=== PATIENT | female | born 1980 | race Caucasian/White ===

== ENCOUNTER 2025-02-14 21:37 | Inpatient (IN) ==
--- NOTE | 2025-02-14 21:43 | ED.PDOC ---
General [facility] ED Provider: Dr. DEL KHANNA MD Chief Complaint: Respiratory Complaint Stated Complaint: Patient is a 44-year-old female that reported to the emergency department for cough and congestion for the past 2 days. Patient stated that 2 weeks ago she had a case of pneumonia and was in the hospital in [place]. Patient stated that she was subsequently released a little 2 weeks ago and was told to follow-up with her primary care doctor. Patient stated that she could not get into her primary care doctor until next week. Patient stated that 2 days ago she started to have a productive cough with green/yellowish sputum. Patient stated that she has not had any fever but she has also had a headache and congestion. Patient denied any sore throat, nausea, vomiting, diarrhea, shortness of breath, chest pain, or any other acute symptoms. Patient stated that she is not been around any other sick contacts that she knows of. In the emergency department patient's tachycardia with a heart rate of 118 bpm. Patient's O2 sat is 94% on room air. Patient's blood pressure is 103/63. Patient's respiration rates is 20 respirations per minute. Patient is afebrile with a temperature of 97.3 Fahrenheit. Patient's GCS is 15. Previously the pt. had ARDS resulting in prolonged hospitalization from Apr to August and had a trach. Patient is currently on Xarelto for multiple pulmonary embolisms found in her hospitalization. Time Seen by Provider: 02/14/25 21:38 Mode of Arrival: Walk-In Information Source: Patient Exam Limitations: No limitations Primary Care Provider: JONATAN LANIER MD Nursing and Triage Documentation Reviewed and Agree: Yes Opioid Naive vs. Tolerant What is Opioid Naive?: *Opioid Naive implies the patient is not already taking opioids or not chronically receiving opioids on a daily basis. *PRN dosing is not "usually" associated with tolerance. *Patients are at higher risk of over-sedation and aspiration. What is Opioid Tolerant?: *Opioid Tolerance implies less than the expected response to an opioid. *Acquired tolerance is defined by the patient taking 60mg of oral morphine daily (or equianalgesic dose of another opioid) for 1 week or more. *Often associated with chronic pain. *May take more than usual dose to achieve desired pain control. Review of Systems Review Of Systems Constitutional: Reports No symptoms Ears, Nose, Mouth, Throat: Reports Nose discharge Respiratory: Reports Cough Neurological: Reports Headache All Other Systems: Reviewed and Negative [facility] Medical History (Updated 02/14/25 @ 23:04 by DEL KHANNA MD) ARDS (adult respiratory distress syndrome) J80 - Acute respiratory distress syndrome (ICD-10) Walker as ambulation aid Rarely used as of 11/15/24. Z99.89 - Dependence on other enabling machines and devices (ICD-10) Right foot drop Foot drop is better. No longer using walker. Still using lyrica. 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 Last done 10/23/24 553. E53.8 - Deficiency of other specified B group vitamins (ICD-10) Primary generalized (osteo)arthritis M15.0 - Primary generalized (osteo)arthritis (ICD-10) Opioid abuse - Hx of opioids abuse. Denies recent opioids use. F11.10 - Opioid abuse, uncomplicated (ICD-10) Hypothyroid E03.9 - Hypothyroidism, unspecified (ICD-10) Migraine - hx of migraine headaches; does not have time to discuss her migraine symptoms. G43.909 - Migraine, unspecified, not intractable, without status migrainosus (ICD-10) Depression - Denies having psychotic features. She reports that her depression has worsened due to recent hospitalization and complications 2/2 pneumonia. - Denies having SI/HI/AVH. F32.A - Depression, unspecified (ICD-10) Anxiety - Hx of anxiety, for which she was taking Xanax. However, she reports that hydroxyzine works well for her. F41.9 - Anxiety disorder, unspecified (ICD-10) Family History BROTHER Diabetes FATHER Diabetes Hepatitis Liver disease Mother Meningitis SISTER Bipolar 1 disorder Schizophrenia Depression Social History Smoking and tobacco status: Former smoker Current gender identity: female Seatbelt use: always Helmet use: Yes Drives intoxicated or rides with intoxicated regional dedicated truck driver: No Surgical History Status post video-assisted thoracoscopic surgery (VATS) with lung decortication Z98.890 - Other specified postprocedural states (ICD-10) History of bronchoscopy with endobronchial valve Z98.890 - Other specified postprocedural states (ICD-10) History of ankle surgery Z98.890 - Other specified postprocedural states (ICD-10) Hx of cholecystectomy Z90.49 - Acquired absence of other specified parts of digestive tract (ICD- 10) H/O gastric bypass Z98.84 - Bariatric surgery status (ICD-10) Female Reproductive History Menstrual Hx Hysterectomy: No Hx Tubal Ligation: No Physical Exam Physical Exam Appearance: Reports Ill-appearing and Well-nourished Ill-appearing: Mild Pain Distress: None Eyes: Reports CAMILA, EOMI and Conjunctiva clear ENT: Reports Nose normal and Oropharynx normal Neck: Supple Respiratory: Reports Airway patent, Breath sounds equal, Respirations nonlabored, Crackles (Crackles noted in the right lower and midlung meehan.) and Wheezes (Mild wheezing noted in the right middle and lower lung meehan.) Cardiovascular: Reports Pulses normal, No rub, No murmur and Tachycardia (Patient's tachycardic with an apical pulse of 110 bpm.) GI/: Reports Soft, Nontender and Bowel sounds normal Musculoskeletal: Reports Normal strength and ROM intact Skin: Reports Warm, Dry and Normal color Neurological: Reports Sensation intact, Motor intact, Alert and Oriented Psychiatric: Reports Affect appropriate and Mood appropriate Physician Progress Note Physician Progress Note: Patient is a 44-year-old female that reported to the emergency department for cough and congestion for the past 2 days. Patient stated that 2 weeks ago she had a case of pneumonia and was in the hospital in [place]. Patient stated that she was subsequently released a little 2 weeks ago and was told to follow- up with her primary care doctor. Patient stated that she could not get into her primary care doctor until next week. Patient stated that 2 days ago she started to have a productive cough with green/yellowish sputum. Patient stated that she has not had any fever but she has also had a headache and congestion. Patient denied any sore throat, nausea, vomiting, diarrhea, shortness of breath, chest pain, or any other acute symptoms. Patient stated that she is not been around any other sick contacts that she knows of. In the emergency department patient's tachycardia with a heart rate of 118 bpm. Patient's O2 sat is 94% on room air. Patient's blood pressure is 103/63. Patient's respiration rates is 20 respirations per minute. Patient is afebrile with a temperature of 97.3 Fahrenheit. Patient's GCS is 15. Previously the pt. had ARDS resulting in prolonged hospitalization from Apr to August and had a trach. Patient is currently on Xarelto for multiple pulmonary embolisms found in her hospitalization. - Due to patient's cough with mild wheezing on physical exam will give the patient a DuoNeb treatment and IV methylprednisolone 125 mg for inflammation. - Will give the patient IV lactated Ringer's 1 L bolus for dehydration and tachycardia. - Will order chest x-ray to rule out pneumonia. - Will order baseline labs and a lactic acid. - Patient has hypomagnesemia. Will give 1 g of IV magnesium. - Chest x-ray shows a chronic right lower lobe hydropneumothorax that is stable from previous studies. An acute right lower lobe consolidation (pneumonia) is noted. This was interpreted by the ER physician. - Will treat patient's right lower lobe pneumonia with IV Zosyn. -(2300) spoke to hospitalist at [facility], Buster Erickson NP who is agreed to accept this patient for pneumonia. Have discussed current treatment of IV mag 1 g for hypomagnesemia, IV Zosyn 4.5 g for pneumonia, IV methylprednisolone 125 mg for inflammation and pneumonia and a DuoNeb treatment for wheezing and pneumonia. Discussed patient's leukocytosis and other pertinent lab findings with radiograph findings to Buster as well. I also discussed that I did find a chronic but stable hemopneumothorax. Also discussed that patient has been seen by pulmonology in [place]. Patient's vital signs are stable at time of acceptance to the hospital Course Course 02/14/25 22:10 02/14/25 22:36 Discharge Plan Discharge Patient Disposition: PLACED OBSERVATION Discharge Problem: Hydropneumothorax, Hx pulmonary embolism, Hypomagnesemia Community acquired pneumonia Qualifiers: Laterality: right Lung location: lower lobe of lung Qualified Code(s): J18.9 - Pneumonia, unspecified organism Did you review [place] [employer] for ALL controlled substances?: Not Applicable ED Provider: DEL KHANNA Condition: Stable
[2025-02-14] MEDS: DUONEB NEB STA (22:15)
[2025-02-14 22:18] LABS: IMMATURE GRANULOCYTE # (AUTO) 0.0 (0.0-1.0); IMMATURE GRANULOCYTE % (AUTO) 0.4 % (0.0-5.0); RDW COEFFICIENT OF VARIATION 14.8 % (11.6-14.8)
[2025-02-14 22:39] LABS: MOLECULAR FLU A NEGATIVE BY NAAT (NEGATIVE); MOLECULAR FLU B NEGATIVE BY NAAT (NEGATIVE); RSV MOLECULAR NEGATIVE BY NAAT (NEGATIVE); SARS COV-2 RNA RAPID NAAT NEGATIVE (NEGATIVE)
[2025-02-14] MEDS: LACTATED RINGERS 1,000 ML IV ONE (22:39)
[2025-02-14] MEDS: SOLU-MEDROL 125 MG IVP ONE (22:40)
[2025-02-14 22:52] LABS: CREATININE 0.81 mg/dL (0.60-1.30)
[2025-02-14] MEDS: MAGNESIUM SULFATE 1 GM/2 ML VIAL IVP ONE (23:11)
[2025-02-14] MEDS: ZOSYN 4.5 GM 4.5 GM in SODIUM CHLORIDE 100ML 100 ML IV ONE (23:12)
[2025-02-14 23:13] LABS: GLUCOSE, URINE (UA) Negative (NEGATIVE); LEUKOCYTE ESTERASE ,URINE Negative (NEGATIVE); URINE, BLOOD 1+ (NEGATIVE)
[2025-02-14 23:15] LABS: URINE PREGNANCY TEST NEGATIVE (NEGATIVE)
[2025-02-14 23:21] LABS: URINE WBC, MICROSCOPIC 0-2 (0-2)
[2025-02-14 23:22] LABS: SQUAMOUS EPITHELIAL CELL,UR 30-50 (0-5)
--- NOTE | 2025-02-15 00:03 | DI ---
EXAM: CHEST, ONE-VIEW HISTORY: Cough FINDINGS: Cardiac and mediastinal contours are normal. Pulmonary vasculature is normal. Crack right pleuroparenchymal scarring and pleural fluid stable from 01/23/2025. No developing opacities. Bony thorax is unremarkable. IMPRESSION: Right-sided pleural-parenchymal scarring and pleural fluid. No developing opacities.
[2025-02-15 00:35] VITALS: BMI 30.2
[2025-02-15] MEDS ORDERED: ZOFRAN TAB PO PRN (01:20)
[2025-02-15] MEDS: ELAVIL PO SCH (02:00)
[2025-02-15] MEDS: DESYREL PO PRN (02:00)
[2025-02-15] MEDS ORDERED: BENADRYL PO PRN (02:46)
[2025-02-15] MEDS: DUONEB NEB SCH ×2 (05:22→13:57)
[2025-02-15 05:29] LABS: IMMATURE GRANULOCYTE # (AUTO) 0.1 (0.0-1.0); IMMATURE GRANULOCYTE % (AUTO) 0.5 % (0.0-5.0); RDW COEFFICIENT OF VARIATION 14.7 % (11.6-14.8)
[2025-02-15 05:45] LABS: CREATININE 0.7 mg/dL (0.60-1.30)
[2025-02-15 05:56] LABS: INR 0.99 SI (0.0-3.9)
[2025-02-15] MEDS: MAXIPIME 2 GM/50 ML D5W 2 GM/50 ML BAG IV SCH (07:06)
[2025-02-15] MEDS: SOLU-MEDROL 40 MG IVP SCH (07:07)
[2025-02-15] MEDS: K-DUR PO SCH (07:20)
[2025-02-15] MEDS: SYNTHROID PO SCH (07:20)
[2025-02-15] MEDS: ASTELIN 0.1% NAS SCH (08:35)
[2025-02-15] MEDS: ANORO ELLIPTA 62.5-25 MCG INH IH SCH (08:36)
[2025-02-15] MEDS: KEPPRA PO SCH (08:36)
[2025-02-15] MEDS: LYRICA PO SCH (08:37)
[2025-02-15] MEDS: CELEBREX PO SCH (08:37)
[2025-02-15] MEDS: VITAMIN D PO SCH (08:38)
[2025-02-15] MEDS: ZOLOFT PO SCH (08:38)
[2025-02-15] MEDS: PROTONIX PO SCH (08:38)
[2025-02-15] MEDS: MUCINEX PO SCH (08:38)
[2025-02-15] MEDS: TOPAMAX PO SCH (08:39)
[2025-02-15] MEDS: SINGULAIR PO SCH (08:39)
[2025-02-15] MEDS ORDERED: DOXYCYCLINE PO SCH (09:00)
[2025-02-15] MEDS ORDERED: SOLU-MEDROL 125 MG IVP SCH (09:00)
[2025-02-15] MEDS ORDERED: XARELTO PO SCH (09:00)
[2025-02-15] MEDS ORDERED: DOXY-100 100 MG in SODIUM CHLORIDE 100ML 100 ML IV SCH (09:00)
[2025-02-15 09:08] LABS: BORDETELLA PARAPERTUSSIS (PCR) NOT DETECTED (NOT DETECT); BORDETELLA PERTUSSIS (PCR) NOT DETECTED (NOT DETECT); CHLAMYDIA PNEUMONIAE (PCR) NOT DETECTED (NOT DETECT); CORONAVIRUS 229E (PCR) NOT DETECTED (NOT DETECT); CORONAVIRUS HKU1 (PCR) NOT DETECTED (NOT DETECT); CORONAVIRUS NL63 (PCR) NOT DETECTED (NOT DETECT); CORONAVIRUS OC43 (PCR) NOT DETECTED (NOT DETECT); HUMAN METAPNEUMOVIRUS (PCR) NOT DETECTED (NOT DETECT); INFLUENZA A H1 (PCR) NOT DETECTED (NOT DETECT); INFLUENZA A H1-2009 (PCR) NOT DETECTED (NOT DETECT); INFLUENZA A H3 (PCR) NOT DETECTED (NOT DETECT); INFLUENZA B (PCR) NOT DETECTED (NOT DETECT); MYCOPLASMA PNEUMONIAE (PCR) NOT DETECTED (NOT DETECT); PARAINFLUENZA VIRUS 1 (PCR) NOT DETECTED (NOT DETECT); PARAINFLUENZA VIRUS 2 (PCR) NOT DETECTED (NOT DETECT); PARAINFLUENZA VIRUS 3 (PCR) NOT DETECTED (NOT DETECT); PARAINFLUENZA VIRUS 4 (PCR) NOT DETECTED (NOT DETECT); RESPIRATORY SYNCYTIAL V (PCR) NOT DETECTED (NOT DETECT); SARS_COV_2 (PCR) NOT DETECTED (NOT DETECT)
[2025-02-15 10:51] LABS: ADENOVIRUS (PCR) NOT DETECTED (NOT DETECT); HUMAN RHINOVIRUS/ENTEROV (PCR) DETECTED (NOT DETECT)
[2025-02-15] MEDS: BALANCED B-100 PO SCH (11:44)
--- NOTE | 2025-02-15 11:45 | CT ---
EXAM: CTA CHEST PE PROTOCOL 02/15/2025. SAGITTAL, CORONAL, MIP AND THREE- DIMENSIONAL RECONSTRUCTED IMAGES PROVIDED HISTORY: sob COMPARISON: 01/26/2025 FINDINGS: Stable chronic right-sided loculated thick-walled hydropneumothorax.The heart size appears stable. There is no pericardial effusion.There are no pulmonary arterial filling defects to suggest pulmonary embolus. The previously described 1.2 cm short axis subcarinal lymph node is stable. This is likely physiologic and reactive. There are innumerable micronodules throughout both lungs. The previously described 9 mm right-sided nodule is stable on axial image 52 of series 9. Consolidation along the lateral and posterior right chest remains consistent with fibrosis, atelectasis and/or pneumonia. Stable bronchiectasis most severe within the lower lobes. Right middle lobe and right lower lobe peribronchial thickening is present. Limited views of the upper abdomen shows no acute abnormality.No acute osseous abnormality. IMPRESSION: 1. No pulmonary embolus. 2. Stable right-sided loculated thick walled hydropneumothorax. 3. Stable reactive appearing mediastinal lymph nodes. Reference measurements above. 4. Innumerable pulmonary micronodules throughout both lungs. These are likely infectious/inflammatory. The previously referenced 9 mm right-sided nodule is stable. 5. Stable bronchiectasis most prominent within the lower lobes. 6. Consolidation along the lateral and posterior right chest remains most compatible with fibrosis, atelectasis and/or pneumonia. This is grossly stable. 7. Right middle lobe and right lower lobe peribronchial thickening. All CT scans are performed using dose optimization techniques as appropriate to the performed exam and include at least one of the following: Automated exposure control, adjustment of the mA and/or kV according to size, and the use of iterative reconstruction technique.
[2025-02-15 12:38] LABS: AMPHETAMINE SCREEN,URINE NEGATIVE (NEGATIVE); CANNABINOID SCREEN,URINE NEGATIVE (NEGATIVE); COCAIN SCREEN,URINE NEGATIVE (NEGATIVE); METHADONE URINE SCREEN NEGATIVE (NEGATIVE); METHAMPHETAMINES SCREEN,URINE NEGATIVE (NEGATIVE); OXYCODONE URINE SCREEN NEGATIVE (NEGATIVE); TRICYCLIC ANTIDEPRESSANTS URIN POSITIVE (NEGATIVE)
--- NOTE | 2025-02-15 13:16 | PCM ---
Date of Service Date Seen by Provider: 02/15/25 Time Seen by Provider: 09:00 Admit Day/Time Admission Date: 02/14/25 Reason for Admission Chief Complaint: PNEUMONIA Hospital Provider Hospital Provider: LUANNE SANTOS[place] [facility] [place] Primary Care Physician: JONATAN LANIER MD History of Present Illness History of Present Illness: 44 yo female with extensive pmh that including ARDS with prolonged intubation, ECMO, and tracheostomy, PE, DVT, Sepsis, epilepsy, migraines, anxiety, and right hydropneumothorax presented to the ER with complaints of unresolved pneumonia. Patient has been in and out of multiple hospitals since 04/2024 and has been treated for chronic recurrent pneumonia. Most recent admission was at [facility] on 01/26-01/29 in which she was found to have multi-focal pneumonia d/t pseudomonas. She underwent a bronchoscopy during this stay and cultures were pending upon discharge. She was referred to infectious disease and has upcoming appointment on 02/[address] Thompson in [place]. Patient was prescribed a 7 day course of levaquin and steroids in which she completed but symptoms did not resolve. Continues to have productive cough with [id number] sputum, congestion, and shortness of air. Also reports her lower extremities have been swelling but are improved compared to the last couple days. After investigation of records from [facility], culture report revealed MDR pseudomonas with resistance to the levaquin course she recently completed. Spoke with Dr. Thompson to discuss his recommendations regarding this new patient of his and recommended a 7 day course of Avycaz - however our hospital is unable to provide this medication. He stated that if this is unavailable tobramycin would be recommended based on the culture. This is not his preference, but is appropriate course to treat this patient. Will follow with her in clinic on 02/27. Admitted to med/surg inpatient to acute on chronic recurrent pneumonia d/t pseudomonas. Case Discussed With Case Discussed With: Patient's case was discussed with the ER Physicians, Dr. Lara. [facility] Medical History Hypotension I95.9 - Hypotension, unspecified (ICD-10) ARDS (adult respiratory distress syndrome) J80 - Acute respiratory distress syndrome (ICD-10) Walker as ambulation aid Rarely used as of 11/15/24. Z99.89 - Dependence on other enabling machines and devices (ICD-10) Right foot drop Foot drop is better. No longer using walker. Still using lyrica. 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 Last done 10/23/24 553. E53.8 - Deficiency of other specified B group vitamins (ICD-10) Primary generalized (osteo)arthritis M15.0 - Primary generalized (osteo)arthritis (ICD-10) Opioid abuse - Hx of opioids abuse. Denies recent opioids use. F11.10 - Opioid abuse, uncomplicated (ICD-10) Hypothyroid E03.9 - Hypothyroidism, unspecified (ICD-10) Migraine - hx of migraine headaches; does not have time to discuss her migraine symptoms. G43.909 - Migraine, unspecified, not intractable, without status migrainosus (ICD-10) Depression - Denies having psychotic features. She reports that her depression has worsened due to recent hospitalization and complications 2/2 pneumonia. - Denies having SI/HI/AVH. F32.A - Depression, unspecified (ICD-10) Anxiety - Hx of anxiety, for which she was taking Xanax. However, she reports that hydroxyzine works well for her. F41.9 - Anxiety disorder, unspecified (ICD-10) Surgical History Status post video-assisted thoracoscopic surgery (VATS) with lung decortication Z98.890 - Other specified postprocedural states (ICD-10) History of bronchoscopy with endobronchial valve Z98.890 - Other specified postprocedural states (ICD-10) History of ankle surgery Z98.890 - Other specified postprocedural states (ICD-10) Hx of cholecystectomy Z90.49 - Acquired absence of other specified parts of digestive tract (ICD- 10) H/O gastric bypass Z98.84 - Bariatric surgery status (ICD-10) Family History BROTHER Diabetes FATHER Diabetes Hepatitis Liver disease Mother Meningitis SISTER Bipolar 1 disorder Schizophrenia Depression Social History Smoking and tobacco status: Former smoker Current gender identity: female Seatbelt use: always Helmet use: Yes Drives intoxicated or rides with intoxicated passenger coach driver: No Allergies Allergies Allergy/AdvReac Type Severity Reaction Status Date / Time latex AdvReac Intermediate Rash Verified 02/14/25 21:52 Current Medications Home Medications Acetaminophen (Acetaminophen 325 Mg Tablet) 650 mg PO Q4H PRN PRN Reason: Pain Last Admin: 02/15/25 13:26 Dose: 650 mg Albuterol/Ipratropium (Ipratropium/Albuterol Vial.Neb) 3 ml NEB RTQ4H [facility] Amitriptyline HCl (Amitriptyline Hcl 25 Mg Tablet) 25 mg PO BEDTIME [facility] Last Admin: 02/15/25 02:00 Dose: 25 mg Azelastine HCl (Azelastine Hcl 30 Ml Nasal [place]) 1 spray SHAHID BID [facility] Last Admin: 02/15/25 08:35 Dose: 1 spray Celecoxib (Celecoxib 100 Mg Capsule) 200 mg PO DAILY [facility] Last Admin: 02/15/25 08:37 Dose: 200 mg Cholecalciferol (Cholecalciferol (Vitamin D3) 1,000 Unit (25 Mcg) Tablet) 5,000 unit PO DAILY [facility] Last Admin: 02/15/25 08:38 Dose: 5,000 unit Diphenhydramine HCl (Diphenhydramine Hcl 25 Mg Capsule) 50 mg PO DAILY PRN PRN Reason: Allergy Symptoms Guaifenesin (Guaifenesin 600 Mg Tablet.Er) 1,200 mg PO BID [facility] Last Admin: 02/15/25 08:38 Dose: 1,200 mg Hydroxyzine HCl (Hydroxyzine Hcl 25 Mg Tablet) 25 mg PO BID PRN PRN Reason: Anxiety Gentamicin Sulfate 400 mg/ (Sodium Chloride) 110 mls @ 100 mls/hr IV ONCE ONE Stop: 02/15/25 14:05 Last Admin: 02/15/25 13:26 Dose: 100 mls/hr Levetiracetam (Levetiracetam 500 Mg Tablet) 1,000 mg PO BID [facility] Last Admin: 02/15/25 08:36 Dose: 1,000 mg Levothyroxine Sodium (Levothyroxine Sodium 100 Mcg Tablet) 100 mcg PO QDAC2 [facility] Methylprednisolone Sodium Succinate (Methylprednisolone Sod Succ/Pf 40 Mg/Ml Vial) 40 mg IVP Q8HR [facility] Last Admin: 02/15/25 13:26 Dose: 40 mg Montelukast Sodium (Montelukast Sodium 10 Mg Tablet) 10 mg PO DAILY [facility] Last Admin: 02/15/25 08:39 Dose: 10 mg Non-Formulary Medication (Buprenorphine-Naloxone [Suboxone]) 1 film BUCCAL BID [facility] Ondansetron HCl (Ondansetron Hcl 4 Mg Tablet) 4 mg PO Q8H PRN PRN Reason: Nausea / Vomiting Pantoprazole Sodium (Pantoprazole Sodium 40 Mg Tablet.Dr) 40 mg PO QDAC2 [facility] Last Admin: 02/15/25 08:38 Dose: 40 mg Potassium Chloride (Potassium Chloride 20 Meq Tab) 20 meq PO DAILYWM2 [facility] Last Admin: 02/15/25 07:20 Dose: 20 meq Pregabalin (Pregabalin 50 Mg Capsule) 100 mg PO BID [facility] Last Admin: 02/15/25 08:37 Dose: 100 mg Rivaroxaban (Rivaroxaban 10 Mg Tablet) 20 mg PO QPM [facility] Sertraline HCl (Sertraline Hcl 50 Mg Tablet) 100 mg PO DAILY [facility] Last Admin: 02/15/25 08:38 Dose: 100 mg Sumatriptan Succinate (Sumatriptan Succinate 25 Mg Tablet) 25 mg PO DAILY PRN PRN Reason: MIGRAINE HEADACHE Topiramate (Topiramate 50 Mg Tablet) 25 mg PO BID [facility] Last Admin: 02/15/25 08:39 Dose: 25 mg Trazodone HCl (Trazodone Hcl 50 Mg Tablet) 100 mg PO BEDTIME PRN PRN Reason: Insomnia Last Admin: 02/15/25 02:00 Dose: 100 mg Umeclidinium/Vilanterol (Umeclidinium Brm/Vilanterol 1 Each Blst.W.Dev) 1 inh IH DAILY RACHAEL Last Admin: 02/15/25 08:36 Dose: 1 inh Vitamin B Complex (Vitamin B-100 Complex 1 Tablet) 1 tab PO DAILY [facility] Last Admin: 02/15/25 11:44 Dose: 1 tab vitamin B complex and vitamin C no.20-folic acid 1 mg capsule (Triphrocaps) 1 cap PO DAILY 09/20/24 [History Confirmed 02/15/25] nebulizer and compressor #1 ea 10/10/24 [Rx Confirmed 02/14/25] cholecalciferol (vitamin D3) 125 mcg (5,000 unit) capsule 125 mcg PO QDAY 10/23/24 [History Confirmed 02/15/25] diphenhydramine HCl 25 mg tablet 50 mg PO QDAY PRN allergy symptoms 10/23/24 [History Confirmed 02/15/25] naloxone 4 mg/actuation nasal spray (Narcan) 4 mg intranasal Q3M PRN opioid overdose 10/23/24 [History Confirmed 02/14/25] Held on 11/10/24. Instructions: other ibuprofen 200 mg tablet (Advil) 200 mg PO Q6-8H PRN pain 11/10/24 [History Confirmed 02/15/25] albuterol sulfate 2.5 mg/3 mL (0.083 %) solution for nebulization 2.5 mg (3 mL) inhalation Q4-6H PRN shortness of breath or wheezing #90 mL 12/24/24 [Rx Confirmed 02/15/25] amitriptyline 25 mg tablet 25 mg PO BEDTIME #90 tabs 12/24/24 [Rx Confirmed 02/15/25] celecoxib 200 mg capsule 200 mg PO Q24H #90 caps 12/24/24 [Rx Confirmed 02/15/25] guaifenesin 1,200 mg tablet, extended release 12 hr (Mucinex) 1,200 mg PO BID 12/24/24 [History Confirmed 02/15/25] hydroxyzine HCl 25 mg tablet 25 mg PO BID PRN anxiety #60 tabs 12/24/24 [Rx Confirmed 02/15/25] levetiracetam 1,000 mg tablet 1,000 mg PO 2XD #60 tabs 12/24/24 [Rx Confirmed 02/15/25] levothyroxine 100 mcg tablet 100 mcg PO DAILY #90 tabs 12/24/24 [Rx Confirmed 02/15/25] ondansetron HCl 4 mg tablet 4 mg PO 3XD PRN nausea and vomiting #90 tabs 12/24/24 [Rx Confirmed 02/15/25] pantoprazole 40 mg tablet,delayed release 40 mg PO DAILY #90 tabs 12/24/24 [Rx Confirmed 02/15/25] pregabalin 100 mg capsule 100 mg PO BID #60 caps 12/24/24 [Rx Confirmed 02/15/25] rivaroxaban 20 mg tablet (Xarelto) 20 mg PO QDAY #90 tabs 12/24/24 [Rx Confirmed 02/15/25] sertraline 100 mg tablet 100 mg PO DAILY #90 tabs 12/24/24 [Rx Confirmed 02/15/25] sumatriptan succinate 25 mg tablet 25 mg PO DAILY PRN migraine headache #20 tabs 12/24/24 [Rx Confirmed 02/15/25] topiramate 25 mg tablet 25 mg PO 2XD #180 tabs 12/24/24 [Rx Confirmed 02/15/25] trazodone 100 mg tablet 100 mg PO BEDTIME PRN sleep #90 tabs 12/24/24 [Rx Confirmed 02/15/25] potassium chloride 20 mEq tablet,extended release 20 meq PO DAILY #30 tabs 01/18/25 [Rx Confirmed 02/15/25] umeclidinium 62.5 mcg-vilanterol 25 mcg/actuation powdr for inhalation (Anoro Ellipta) 1 inh inhalation Q24H #60 ea 01/24/25 [Rx Confirmed 02/15/25] buprenorphine 8 mg-naloxone 2 mg sublingual film (Suboxone) 1 film buccal BID 02/14/25 [History Confirmed 02/15/25] azelastine 137 mcg (0.1 %) nasal spray 1 spray intranasal BID 02/15/25 [History Confirmed 02/15/25] montelukast 10 mg tablet 10 mg PO DAILY 02/15/25 [History Confirmed 02/15/25] sodium chloride 3 % for nebulization 4 ml inhalation BID 02/15/25 [History Confirmed 02/15/25] Opioid Naive vs. Tolerant Does Patient Take Opioids?: No Is Patient Opioid Naive?: Yes What is Opioid Naive?: *Opioid Naive implies the patient is not already taking opioids or not chronically receiving opioids on a daily basis. *PRN dosing is not "usually" associated with tolerance. *Patients are at higher risk of over-sedation and aspiration. Is Patient Opioid Tolerant?: No What is Opioid Tolerant?: *Opioid Tolerance implies less than the expected response to an opioid. *Acquired tolerance is defined by the patient taking 60mg of oral morphine daily (or equianalgesic dose of another opioid) for 1 week or more. *Often associated with chronic pain. *May take more than usual dose to achieve desired pain control. Review of Systems Constitutional: Reports Fever, Fatigue, Recent Weight Loss, Recent Weight Gain, Chills, Weakness, Sweats, Loss of appetite and Other Head: Reports Normocephalic Eyes: Reports No symptoms Ears: Reports No symptoms Nose: Reports No symptoms Mouth: Reports No symptoms Throat: Reports No symptoms Cardiovascular: Reports Edema Respiratory: Reports Cough (yellow/green/brown sputum) and Shortness of air Gastrointestinal: Reports No symptoms Genitourinary: Reports No Symptoms Musculoskeletal: Reports No symptoms Endocrine: Reports No symptoms Hematology: Reports No symptoms Immunology: Reports No symptoms Neurological: Reports No symptoms Psychiatric: Reports No symptoms Physical examination Most Recent Vital Signs: Most Recent Vital Signs Temperature 96.9 F L 02/15/25 10:00 Temperature Source Temporal Artery Scan 02/15/25 10:00 Temperature Source Temporal Artery Scan 02/14/25 23:00 Pulse Rate 90 02/15/25 10:00 Respiratory Rate 14 02/15/25 10:00 Blood Pressure 120/79 02/15/25 10:00 Blood Pressure Mean 92 02/15/25 10:00 Blood Pressure Right Arm 110/76 02/15/25 00:03 Blood Pressure Location Right Arm 02/15/25 10:00 Blood Pressure Position Supine 02/15/25 05:27 O2 Sat by Pulse Oximetry 95 02/15/25 10:00 Oxygen Delivery Method Room Air 02/15/25 10:00 Oxygen Flow Rate 2 02/15/25 05:27 Height 5 ft 02/15/25 00:03 Weight 70.1 kg 02/15/25 00:03 Telemetry Type Remote Telemetry 02/15/25 07:00 Telemetry Monitoring Continues 02/15/25 07:00 Irregular Telemetry Rate (Approximate) 70-80 BPM 02/15/25 07:00 Telemetry Heart Rate 78 02/15/25 07:00 Telemetry SPO2 95 02/15/25 07:00 EKG PA Interval 0.16 02/15/25 07:00 EKG QRS Interval 0.07 02/15/25 07:00 Telemetry Strip Reading NSR 02/15/25 07:00 Appearance: Positive No Apparent Distress, Alert and Oriented x3 and Ill- Appearing Skin: Positive Warm and Good Color HEENT: Positive Normocephalic and PERRLA Neck: Positive Supple and Midline Trachea Chest/Lungs: Positive Symmetrical With Equal Breath Sounds, Rhonci (bilateral lower lobes) and Wheezes (throughout lung meehan) Heart: Positive RRR and Pulses Normal GI/: Positive Soft, Nontender, Bowel Sounds Normal and No Distention Musculoskeletal: Positive Not Examined Extremities: Positive Edema (+2 nonpitting BLE), Intact Peripheral Pulses, Stable Joints Without Laxity and Good ROM in All Joints Neurological: Positive Sensation Intact, Motor intact, Reflexes Intact, Alert and Oriented Labs This Visit Labs This Visit: Labs This Visit 02/14/25 02/14/25 02/14/25 22:10 22:15 22:36 WBC 10.92 H RBC 3.79 L Hgb 11.1 L Hct 34.4 L MCV 90.8 MCH 29.3 MCHC 32.3 RDW Coeff of Tomas 14.8 Plt Count 175 Immature Gran % (Auto) 0.4 Neut % (Auto) 84.6 H Lymph % (Auto) 8.8 L [place] % (Auto) 4.4 Eos % (Auto) 1.6 Baso % (Auto) 0.2 Neut # (Auto) 9.2 H Lymph # (Auto) 1.0 [place] # (Auto) 0.5 Eos # (Auto) 0.2 Baso # (Auto) 0.0 Immature Gran # (Auto) 0.0 PT INR Sodium 133.2 L Potassium 4.05 Chloride 101.4 Carbon Dioxide 26.1 Anion Gap 9.75 BUN 14.9 Creatinine 0.81 Estimated GFR (MDRD) 76.00 BUN/Creatinine Ratio 18.39 Glucose 110.6 H Lactic Acid 0.98 Calcium 8.39 L Magnesium 1.56 L Total Bilirubin 0.39 AST 47.4 H ALT 39.5 H Alkaline Phosphatase 158.5 H NT-Pro-B Natriuret Pep Total Protein 6.65 Albumin 3.63 Globulin 3.02 Albumin/Globulin Ratio 1.20 Urine Color Urine Clarity Urine pH Ur Specific [place] Urine Protein Urine Glucose (UA) Urine Ketones Urine Blood Urine Nitrite Urine Bilirubin Urine Urobilinogen Ur Leukocyte Esterase Urine Microscopic RBC Urine Microscopic WBC Ur Squamous Epith Cells RBC Casts Urine Test Urine Opiates Screen Ur Oxycodone Screen Urine Methadone Screen Ur Barbiturates Screen U Tricyclic Antidepress Ur Phencyclidine Scrn Ur Amphetamine Screen U Methamphetamines Scrn U Benzodiazepines Scrn Urine Cocaine Screen U Cannabinoids Screen Adenovirus (PCR) B. pertussis DNA (PCR) B.parapertussis DNA PCR C. pneumoniae DNA (PCR) Coronavirus OC43 (PCR) Coronavirus HKU1 (PCR) Coronavirus 229E (PCR) Coronavirus NL63 (PCR) Human Metapneumovir PCR Influenza A (H1) PCR Influ A (H1N1/) PCR Influenza A (H3) PCR Influenza Type A (PCR) Influ A Molecular Assay Negative by naat Influenza B (RT-PCR) Influ B Molecular Assay Negative by naat M. pneumoniae (PCR) Parainfluenza 1 (PCR) Parainfluenza 2 (PCR) Parainfluenza 3 (PCR) Parainfluenza 4 (PCR) RSV Antigen Negative by naat RSV (PCR) Entero/Rhino (PCR) SARS-CoV-2 (PCR) SARS CoV-2 RNA Rapid TREVON Negative 02/14/25 02/15/25 02/15/25 23:07 05:09 09:06 WBC 10.91 H RBC 3.84 L Hgb 11.1 L Hct 34.6 L MCV 90.1 MCH 28.9 MCHC 32.1 RDW Coeff of Tomas 14.7 Plt Count 145 Immature Gran % (Auto) 0.5 Neut % (Auto) 92.7 H Lymph % (Auto) 5.7 L [place] % (Auto) 0.9 Eos % (Auto) 0.1 Baso % (Auto) 0.1 Neut # (Auto) 10.1 H Lymph # (Auto) 0.6 [place] # (Auto) 0.1 L Eos # (Auto) 0.0 Baso # (Auto) 0.0 Immature Gran # (Auto) 0.1 PT 10.3 INR 0.99 Sodium 133.5 L Potassium 4.44 Chloride 103.8 Carbon Dioxide 24.2 Anion Gap 9.94 BUN 12.8 Creatinine 0.70 Estimated GFR (MDRD) 90.00 BUN/Creatinine Ratio 18.28 Glucose 199.9 H D Lactic Acid Calcium 8.80 Magnesium Total Bilirubin 0.35 AST 69.5 H ALT 55.5 H Alkaline Phosphatase 192.3 H D NT-Pro-B Natriuret Pep 464 H Total Protein 7.11 Albumin 3.89 Globulin 3.22 Albumin/Globulin Ratio 1.20 Urine Color Yellow Urine Clarity Clear Urine pH 6.5 Ur Specific [place] 1.020 Urine Protein Negative Urine Glucose (UA) Negative Urine Ketones Negative Urine Blood 1+ H Urine Nitrite Negative Urine Bilirubin Negative Urine Urobilinogen 1.0 H Ur Leukocyte Esterase Negative Urine Microscopic RBC 2-5 Urine Microscopic WBC 0-2 Ur Squamous Epith Cells 30-50 RBC Casts 2-5 Urine Test Negative Urine Opiates Screen Ur Oxycodone Screen Urine Methadone Screen Ur Barbiturates Screen U Tricyclic Antidepress Ur Phencyclidine Scrn Ur Amphetamine Screen U Methamphetamines Scrn U Benzodiazepines Scrn Urine Cocaine Screen U Cannabinoids Screen Adenovirus (PCR) Not detected B. pertussis DNA (PCR) Not detected B.parapertussis DNA PCR Not detected C. pneumoniae DNA (PCR) Not detected Coronavirus OC43 (PCR) Not detected Coronavirus HKU1 (PCR) Not detected Coronavirus 229E (PCR) Not detected Coronavirus NL63 (PCR) Not detected Human Metapneumovir PCR Not detected Influenza A (H1) PCR Not detected Influ A (H1N1/09) PCR Not detected Influenza A (H3) PCR Not detected Influenza Type A (PCR) Not detected Influ A Molecular Assay Influenza B (RT-PCR) Not detected Influ B Molecular Assay M. pneumoniae (PCR) Not detected Parainfluenza 1 (PCR) Not detected Parainfluenza 2 (PCR) Not detected Parainfluenza 3 (PCR) Not detected Parainfluenza 4 (PCR) Not detected RSV Antigen RSV (PCR) Not detected Entero/Rhino (PCR) Detected H SARS-CoV-2 (PCR) Not detected SARS CoV-2 RNA Rapid TREVON 02/15/25 12:21 WBC RBC Hgb Hct MCV MCH MCHC RDW Coeff of Tomas Plt Count Immature Gran % (Auto) Neut % (Auto) Lymph % (Auto) [place] % (Auto) Eos % (Auto) Baso % (Auto) Neut # (Auto) Lymph # (Auto) [place] # (Auto) Eos # (Auto) Baso # (Auto) Immature Gran # (Auto) PT INR Sodium Potassium Chloride Carbon Dioxide Anion Gap BUN Creatinine Estimated GFR (MDRD) BUN/Creatinine Ratio Glucose Lactic Acid Calcium Magnesium Total Bilirubin AST ALT Alkaline Phosphatase NT-Pro-B Natriuret Pep Total Protein Albumin Globulin Albumin/Globulin Ratio Urine Color Urine Clarity Urine pH Ur Specific [place] Urine Protein Urine Glucose (UA) Urine Ketones Urine Blood Urine Nitrite Urine Bilirubin Urine Urobilinogen Ur Leukocyte Esterase Urine Microscopic RBC Urine Microscopic WBC Ur Squamous Epith Cells RBC Casts Urine Test Urine Opiates Screen Negative Ur Oxycodone Screen Negative Urine Methadone Screen Negative Ur Barbiturates Screen Negative U Tricyclic Antidepress Positive H Ur Phencyclidine Scrn Negative Ur Amphetamine Screen Negative U Methamphetamines Scrn Negative U Benzodiazepines Scrn Negative Urine Cocaine Screen Negative U Cannabinoids Screen Negative Adenovirus (PCR) B. pertussis DNA (PCR) B.parapertussis DNA PCR C. pneumoniae DNA (PCR) Coronavirus OC43 (PCR) Coronavirus HKU1 (PCR) Coronavirus 229E (PCR) Coronavirus NL63 (PCR) Human Metapneumovir PCR Influenza A (H1) PCR Influ A (H1N1/09) PCR Influenza A (H3) PCR Influenza Type A (PCR) Influ A Molecular Assay Influenza B (RT-PCR) Influ B Molecular Assay M. pneumoniae (PCR) Parainfluenza 1 (PCR) Parainfluenza 2 (PCR) Parainfluenza 3 (PCR) Parainfluenza 4 (PCR) RSV Antigen RSV (PCR) Entero/Rhino (PCR) SARS-CoV-2 (PCR) SARS CoV-2 RNA Rapid TREVON Microbiology This Visit 02/14/25 22:15 Throat Group A Strep Molecular Assay - Final Imaging Imaging: EXAM: CHEST, ONE-VIEW FINDINGS: Cardiac and mediastinal contours are normal. Pulmonary vasculature is normal. Crack right pleuroparenchymal scarring and pleural fluid stable from 01/23/2025. No developing opacities. Bony thorax is unremarkable. IMPRESSION: Right-sided pleural-parenchymal scarring and pleural fluid. No d eveloping opacities. EXAM: CTA CHEST PE PROTOCOL 02/15/2025. SAGITTAL, CORONAL, MIP AND THREE- DIMENSIONAL RECONSTRUCTED IMAGES PROVIDED COMPARISON: 01/26/2025 FINDINGS: Stable chronic right-sided loculated thick-walled hydropneumothorax.The heart size appears stable. There is no pericardial effusion.There are no pulmonary arterial filling defects to suggest pulmonary embolus. The previously described 1.2 cm short axis subcarinal lymph node is stable. This is likely physiologic and reactive. There are innumerable micronodules throughout both lungs. The previously desc ribed 9 mm right-sided nodule is stable on axial image 52 of series 9. Consolidation along the lateral and posterior right chest remains consistent with fibrosis, atelectasis and/or pneumonia. Stable bronchiectasis most severe within the lower lobes. Right middle lobe and right lower lobe peribronchial thickening is present. Limited views of the upper abdomen shows no acute abnormality.No acute osseous abnormality. IMPRESSION: 1. No pulmonary embolus. 2. Stable right-sided loculated thick walled hydropneumothorax. 3. Stable reactive appearing mediastinal lymph nodes. Reference measurements a monique. 4. Innumerable pulmonary micronodules throughout both lungs. These are likely infectious/inflammatory. The previously referenced 9 mm right-sided nodule is stable. 5. Stable bronchiectasis most prominent within the lower lobes. 6. Consolidation along the lateral and posterior right chest remains most compatible with fibrosis, atelectasis and/or pneumonia. This is grossly stable. 7. Right middle lobe and right lower lobe peribronchial thickening. Review Statement Review Statement: I have independently reviewed and interpreted the labs/EKGs/imaging that were ordered by the ER provider. I have reviewed all outside records that are available currently in our EMR including imaging/notes/labs from previous visits. Plan Plan: 1. Acute on Chronic Recurrent Pneumonia due to Pseudomonas - CTA completed and reveals continued consolidation to R chest, will given dose of gentamicin today due to no tobramycin in house, tobramycin to start daily tomorrow once received x 7 days, following Dr. Thompson ID with [facility] recommendations - follow up on 02/27, nebs Q4H, sputum culture collected and pending 2. Hx of DVT/PE - continue xarelto 3. Epilepsy - continue home medications 4. Hyponatremia - chronic, continue salt tabs, 1800 ml fluid restriction 5. Opiate abuse - continue suboxone 6. Anxiety - continue home medications DVT Prophylaxis: Xarelto Time Spent: Greater than 80 minutes spent with patient, 50% of the time spent with this patient was devoted to counseling and coordination of care. [facility] minutes spent discussing advance care planning. Disposition: Due to history of drug abuse, patient is a difficult IV stick and would be inappropriate for patient to receive IV medications in outpatient setting due to this and to assist with compliance to avoid recurrent hospitalization given significant history. Admit to: Med/Surg IP Discussed Plan of Care with Dr. Stone. Medications Medication Orders: Medications Ordered Category Date Time Status Acetaminophen [Tylenol] Meds 02/15/25 13:03 Active 650 mg PO Q4H PRN Amitriptyline HCl [Elavil] Meds 02/15/25 01:20 Active 25 mg PO BEDTIME Azelastine HCl [Astelin 0.1%] Meds 02/15/25 09:00 Active 1 spray SHAHID BID Buprenorphine-Naloxone [Suboxone] Meds 02/15/25 21:00 Active 1 film BUCCAL BID Celecoxib [Celebrex] Meds 02/15/25 09:00 Active 200 mg PO DAILY Cholecalciferol (Vitamin D3) [Vitamin D] Meds 02/15/25 09:00 Active 5,000 unit PO DAILY Diphenhydramine HCl [Benadryl] Meds 02/15/25 02:46 Active 50 mg PO DAILY PRN ALL Allergy Symptoms Gentamicin Sulfate 400 mg Meds 02/15/25 13:00 Active 0.9 % Sodium Chloride [Sodium Chloride 100Ml] 100 ml IV ONCE Guaifenesin [Mucinex] Meds 02/15/25 09:00 Active 1,200 mg PO BID Hydroxyzine HCl [Atarax] Meds 02/15/25 01:20 Active 25 mg PO BID PRN ANX Anxiety Ipratropium/Albuterol Neb [Duoneb] Meds 02/15/25 14:00 Active 3 ml NEB RTQ4H Levetiracetam [Keppra] Meds 02/15/25 09:00 Active 1,000 mg PO BID Levothyroxine Sodium [Synthroid] Meds 02/16/25 06:00 Active 100 mcg PO QDAC2 Methylprednisolone Sod Succ/Pf [Solu-Medrol 40 mg] Meds 02/15/25 05:00 Active 40 mg IVP Q8HR Montelukast Sodium [Singulair] Meds 02/15/25 09:00 Active 10 mg PO DAILY Ondansetron HCl [Zofran Tab] Meds 02/15/25 01:20 Active 4 mg PO Q8H PRN N/V Nausea / Vomiting Pantoprazole Sodium [Protonix] Meds 02/15/25 09:00 Active 40 mg PO QDAC2 Potassium Chloride [K-Dur] Meds 02/15/25 07:30 Active 20 meq PO DAILYWM2 Pregabalin [Lyrica] Meds 02/15/25 09:00 Active 100 mg PO BID Rivaroxaban [Xarelto] Meds 02/15/25 17:00 Active 20 mg PO QPM Sertraline HCl [Zoloft] Meds 02/15/25 09:00 Active 100 mg PO DAILY Sumatriptan Succinate [Imitrex] Meds 02/15/25 01:20 Active 25 mg PO DAILY PRN MIGRAINE HEADACHE MIGRAINE HEADACHE Topiramate [Topamax] Meds 02/15/25 09:00 Active 25 mg PO BID Trazodone HCl [Desyrel] Meds 02/15/25 01:25 Active 100 mg PO BEDTIME PRN INSOMNIA Insomnia Umeclidinium Brm/Vilanterol Tr [Anoro Ellipta 62.5-25 Meds 02/15/25 09:00 Active Mcg INH] 1 inh IH DAILY Vitamin B-100 Complex [Balanced B-100] Meds 02/15/25 11:00 Active 1 tab PO DAILY
[2025-02-15] MEDS: TYLENOL PO PRN (13:26)
[2025-02-15] MEDS: LASIX IVP ONE (15:26)
[2025-02-15] MEDS: XARELTO PO SCH (17:04)
[2025-02-16 05:10] LABS: IMMATURE GRANULOCYTE # (AUTO) 0.1 (0.0-1.0); IMMATURE GRANULOCYTE % (AUTO) 0.8 % (0.0-5.0); RDW COEFFICIENT OF VARIATION 15.0 % (11.6-14.8)
[2025-02-16 05:28] LABS: CREATININE 0.74 mg/dL (0.60-1.30)
[2025-02-16] MEDS: SYNTHROID PO SCH (06:18)
[2025-02-16] MEDS: CELEBREX PO SCH (08:42)
--- NOTE | 2025-02-16 09:23 | PCM.PROG ---
Date/Time Seen Date Seen by Provider: 02/16/25 Time Seen by Provider: 09:00 Provider Provider: LU[facility]ANT[facility] Chief Complaint Chief Complaint: PNEUMONIA Subjective Subjective: Still mildly congested today. Feels she is breathing better today. Objective Appearance: Positive No Apparent Distress, Alert and Oriented x3 and Ill- Appearing Chest/Lungs: Positive Symmetrical With Equal Breath Sounds, Rhonci (bilateral lung bases) and Wheezes (inspiratory) Heart: Positive RRR and Pulses Normal GI/: Positive Soft, Nontender, Bowel Sounds Normal and No Distention Musculoskeletal: Positive Not Examined Neurological: Positive Sensation Intact, Motor intact, Reflexes Intact, Alert and Oriented Additional Findings: +1-2 pitting edema ble, improved from yesterday Vital Signs Vital Signs: Vital Signs: Last 24 Hours 02/15/25 09:30 02/15/25 10:00 02/15/25 10:00 Temperature 96.9 F L Temperature Source Temporal Artery Scan Pulse Rate 90 Respiratory Rate 22 H 14 Blood Pressure 120/79 Blood Pressure Mean 92 Blood Pressure Location Right Arm Blood Pressure Position O2 Sat by Pulse Oximetry 95 95 Oxygen Delivery Method Room Air Room Air Room Air Telemetry Type Telemetry Monitoring Irregular Telemetry Rate (Approximate) Telemetry Heart Rate Telemetry SPO2 EKG CA Interval EKG QRS Interval Telemetry Strip Reading 02/15/25 13:00 02/15/25 14:00 02/15/25 14:00 Temperature 97.6 F Temperature Source Temporal Artery Scan Pulse Rate 106 H Respiratory Rate 16 Blood Pressure 116/64 Blood Pressure Mean 81 Blood Pressure Location Left Arm Blood Pressure Position O2 Sat by Pulse Oximetry 94 L 95 Oxygen Delivery Method Room Air Room Air Telemetry Type Remote Telemetry Telemetry Monitoring Continues Irregular Telemetry Rate (Approximate) 80-90 BPM Telemetry Heart Rate 85 Telemetry SPO2 94 EKG CA Interval 0.16 EKG QRS Interval 0.07 Telemetry Strip Reading NSR 02/15/25 18:00 02/15/25 19:00 02/15/25 20:00 Temperature 97.5 F L Temperature Source Temporal Artery Scan Pulse Rate 104 H Respiratory Rate 14 Blood Pressure 102/51 L Blood Pressure Mean 68 Blood Pressure Location Left Arm Blood Pressure Position Sitting O2 Sat by Pulse Oximetry 94 L 96 Oxygen Delivery Method Room Air Room Air Telemetry Type Remote Telemetry Telemetry Monitoring Continues Irregular Telemetry Rate (Approximate) Telemetry Heart Rate 104 H Telemetry SPO2 95 EKG CA Interval 0.17 EKG QRS Interval 0.06 Telemetry Strip Reading sr 02/15/25 20:00 02/15/25 21:36 02/16/25 01:00 Temperature 97.9 F Temperature Source Temporal Artery Scan Pulse Rate 106 H Respiratory Rate 22 H Blood Pressure 136/62 Blood Pressure Mean 86 Blood Pressure Location Left Arm Blood Pressure Position Supine O2 Sat by Pulse Oximetry 98 Oxygen Delivery Method Room Air Room Air Telemetry Type Remote Telemetry Telemetry Monitoring Continues Irregular Telemetry Rate (Approximate) Telemetry Heart Rate 123 H Telemetry SPO2 EKG CA Interval 0.15 EKG QRS Interval 0.06 Telemetry Strip Reading sr 02/16/25 02:00 02/16/25 05:35 02/16/25 06:00 Temperature 97.6 F 97.6 F Temperature Source Temporal Artery Scan Temporal Artery Scan Pulse Rate 108 H 94 Respiratory Rate 18 18 Blood Pressure 100/61 107/71 Blood Pressure Mean 74 83 Blood Pressure Location Left Arm Left Arm Blood Pressure Position Supine Supine O2 Sat by Pulse Oximetry 98 97 Oxygen Delivery Method Room Air Room Air Room Air Telemetry Type Telemetry Monitoring Irregular Telemetry Rate (Approximate) Telemetry Heart Rate Telemetry SPO2 EKG CA Interval EKG QRS Interval Telemetry Strip Reading 02/16/25 07:00 Temperature Temperature Source Pulse Rate Respiratory Rate Blood Pressure Blood Pressure Mean Blood Pressure Location Blood Pressure Position O2 Sat by Pulse Oximetry Oxygen Delivery Method Telemetry Type Remote Telemetry Telemetry Monitoring Continues Irregular Telemetry Rate (Approximate) Telemetry Heart Rate 61 Telemetry SPO2 EKG CA Interval 0.15 EKG QRS Interval 0.07 Telemetry Strip Reading Lab Results Lab Results: Lab Results: Last 24 Hours 02/16/25 02/15/25 02/15/25 04:55 12:21 09:06 WBC 10.33 H RBC 3.49 L Hgb 10.1 L Hct 32.0 L MCV 91.7 MCH 28.9 MCHC 31.6 L RDW Coeff of Tomas 15.0 H Plt Count 151 Immature Gran % (Auto) 0.8 Neut % (Auto) 88.9 H Lymph % (Auto) 4.9 L [place] % (Auto) 5.3 Eos % (Auto) 0.0 Baso % (Auto) 0.1 Neut # (Auto) 9.2 H Lymph # (Auto) 0.5 L [place] # (Auto) 0.6 Eos # (Auto) 0.0 Baso # (Auto) 0.0 Immature Gran # (Auto) 0.1 Sodium 134.8 Potassium 4.70 Chloride 103.1 Carbon Dioxide 24.9 Anion Gap 11.50 BUN 22.2 H Creatinine 0.74 Estimated GFR (MDRD) 85.00 BUN/Creatinine Ratio 30.00 Glucose 151.7 H Calcium 9.34 Total Bilirubin 0.23 AST 26.1 D ALT 34.2 Alkaline Phosphatase 131.0 H D NT-Pro-B Natriuret Pep Total Protein 6.73 Albumin 3.65 Globulin 3.08 Albumin/Globulin Ratio 1.18 Urine Opiates Screen Negative Ur Oxycodone Screen Negative Urine Methadone Screen Negative Ur Barbiturates Screen Negative U Tricyclic Antidepress Positive H Ur Phencyclidine Scrn Negative Ur Amphetamine Screen Negative U Methamphetamines Scrn Negative U Benzodiazepines Scrn Negative Urine Cocaine Screen Negative U Cannabinoids Screen Negative Adenovirus (PCR) Not detected B. pertussis DNA (PCR) Not detected B.parapertussis DNA PCR Not detected C. pneumoniae DNA (PCR) Not detected Coronavirus OC43 (PCR) Not detected Coronavirus HKU1 (PCR) Not detected Coronavirus 229E (PCR) Not detected Coronavirus NL63 (PCR) Not detected Human Metapneumovir PCR Not detected Influenza A (H1) PCR Not detected Influ A (H1N1/09) PCR Not detected Influenza A (H3) PCR Not detected Influenza Type A (PCR) Not detected Influenza B (RT-PCR) Not detected M. pneumoniae (PCR) Not detected Parainfluenza 1 (PCR) Not detected Parainfluenza 2 (PCR) Not detected Parainfluenza 3 (PCR) Not detected Parainfluenza 4 (PCR) Not detected RSV (PCR) Not detected Entero/Rhino (PCR) Detected H SARS-CoV-2 (PCR) Not detected 02/15/25 05:09 WBC RBC Hgb Hct MCV MCH MCHC RDW Coeff of Tomas Plt Count Immature Gran % (Auto) Neut % (Auto) Lymph % (Auto) [place] % (Auto) Eos % (Auto) Baso % (Auto) Neut # (Auto) Lymph # (Auto) [place] # (Auto) Eos # (Auto) Baso # (Auto) Immature Gran # (Auto) Sodium Potassium Chloride Carbon Dioxide Anion Gap BUN Creatinine Estimated GFR (MDRD) BUN/Creatinine Ratio Glucose Calcium Total Bilirubin AST ALT Alkaline Phosphatase NT-Pro-B Natriuret Pep 464 H Total Protein Albumin Globulin Albumin/Globulin Ratio Urine Opiates Screen Ur Oxycodone Screen Urine Methadone Screen Ur Barbiturates Screen U Tricyclic Antidepress Ur Phencyclidine Scrn Ur Amphetamine Screen U Methamphetamines Scrn U Benzodiazepines Scrn Urine Cocaine Screen U Cannabinoids Screen Adenovirus (PCR) B. pertussis DNA (PCR) B.parapertussis DNA PCR C. pneumoniae DNA (PCR) Coronavirus OC43 (PCR) Coronavirus HKU1 (PCR) Coronavirus 229E (PCR) Coronavirus NL63 (PCR) Human Metapneumovir PCR Influenza A (H1) PCR Influ A (H1N1/) PCR Influenza A (H3) PCR Influenza Type A (PCR) Influenza B (RT-PCR) M. pneumoniae (PCR) Parainfluenza 1 (PCR) Parainfluenza 2 (PCR) Parainfluenza 3 (PCR) Parainfluenza 4 (PCR) RSV (PCR) Entero/Rhino (PCR) SARS-CoV-2 (PCR) Additional Comments Additional Comments: I have independently reviewed and interpreted the labs/EKGs/imaging ordered during this hospital stay. I have reviewed outside records that are available in our EMR that pertain to medical stay including imaging/notes/labs from previous visits. Active Medications Active Medications: Medications Generic Name Dose Route Start Last Admin Trade Name Freq PRN Reason Stop Dose Admin Acetaminophen 650 mg 02/15/25 13:03 02/15/25 13:26 Acetaminophen 325 Mg Tablet PO 650 mg Q4H PRN Administration Pain Albuterol/Ipratropium 3 ml 02/15/25 14:00 02/16/25 05:29 Ipratropium/Albuterol Vial.Neb NEB 3 ml RTQ4H RACHAEL Administration Amitriptyline HCl 25 mg 02/15/25 01:20 02/15/25 20:27 Amitriptyline Hcl 25 Mg Tablet PO 25 mg BEDTIME RACHAEL Administration Azelastine HCl 1 spray 02/15/25 09:00 02/16/25 08:40 Azelastine Hcl 30 Ml Nasal [place] SHAHID 1 spray BID RACHAEL Administration Celecoxib 200 mg 02/16/25 07:30 02/16/25 08:42 Celecoxib 100 Mg Capsule PO 200 mg DAILYWM2 RACHAEL Administration Cholecalciferol 5,000 unit 02/15/25 09:00 02/16/25 08:43 Cholecalciferol (Vitamin D3) 1,000 Unit (25 Mcg) Tablet PO 5,000 unit DAILY RACHAEL Administration Diphenhydramine HCl 50 mg 02/15/25 02:46 Diphenhydramine Hcl 25 Mg Capsule PO DAILY PRN Allergy Symptoms Guaifenesin 1,200 mg 02/15/25 09:00 02/16/25 08:42 Guaifenesin 600 Mg Tablet.Er PO 1,200 mg BID RACHAEL Administration Hydroxyzine HCl 25 mg 02/15/25 01:20 Hydroxyzine Hcl 25 Mg Tablet PO BID PRN Anxiety Tobramycin Sulfate 400 mg/ 110 mls @ 200 mls/hr 02/16/25 13:00 Sodium Chloride IV 02/22/25 13:32 1300 RACHAEL Levetiracetam 1,000 mg 02/15/25 09:00 02/16/25 08:42 Levetiracetam 500 Mg Tablet PO 1,000 mg BID RACHAEL Administration Levothyroxine Sodium 100 mcg 02/16/25 06:00 02/16/25 06:18 Levothyroxine Sodium 100 Mcg Tablet PO 100 mcg QDAC2 RACHAEL Administration Methylprednisolone Sodium Succinate 40 mg 02/15/25 05:00 02/16/25 06:18 Methylprednisolone Sod Succ/Pf 40 Mg/Ml Vial IVP 40 mg Q8HR RACHAEL Administration Montelukast Sodium 10 mg 02/15/25 09:00 02/16/25 08:43 Montelukast Sodium 10 Mg Tablet PO 10 mg DAILY RACHAEL Administration Non-Formulary Medication 1 film 02/15/25 21:00 02/16/25 08:41 Buprenorphine-Naloxone [Suboxone] BUCCAL 1 film BID RACHAEL Administration Ondansetron HCl 4 mg 02/15/25 01:20 Ondansetron Hcl 4 Mg Tablet PO Q8H PRN Nausea / Vomiting Pantoprazole Sodium 40 mg 02/15/25 09:00 02/16/25 06:18 Pantoprazole Sodium 40 Mg Tablet.Dr PO 40 mg QDAC2 RACHAEL Administration Potassium Chloride 20 meq 02/15/25 07:30 02/16/25 08:43 Potassium Chloride 20 Meq Tab PO 20 meq DAILYWM2 RACHAEL Administration Pregabalin 100 mg 02/15/25 09:00 02/16/25 08:42 Pregabalin 50 Mg Capsule PO 100 mg BID RACHAEL Administration Rivaroxaban 20 mg 02/15/25 17:00 02/15/25 17:04 Rivaroxaban 10 Mg Tablet PO 20 mg QPM RACHAEL Administration Sertraline HCl 100 mg 02/15/25 09:00 02/16/25 08:42 Sertraline Hcl 50 Mg Tablet PO 100 mg DAILY RACHAEL Administration Sumatriptan Succinate 25 mg 02/15/25 01:20 Sumatriptan Succinate 25 Mg Tablet PO DAILY PRN MIGRAINE HEADACHE Topiramate 25 mg 02/15/25 09:00 02/16/25 08:43 Topiramate 50 Mg Tablet PO 25 mg BID RACHAEL Administration Trazodone HCl 100 mg 02/15/25 01:25 02/16/25 02:32 Trazodone Hcl 50 Mg Tablet PO 100 mg BEDTIME PRN Administration Insomnia Umeclidinium/Vilanterol 1 inh 02/15/25 09:00 02/16/25 08:40 Umeclidinium Brm/Vilanterol 1 Each Blst.W.Dev IH 1 inh DAILY RACHAEL Administration Vitamin B Complex 1 tab 02/15/25 11:00 02/16/25 08:43 Vitamin B-100 Complex 1 Tablet PO 1 tab DAILY RACHAEL Administration Plan Plan: 1. 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 Thompson ID with [facility] recommendations - follow up on 02/27, nebs Q4H, sputum culture showing mixed maricarmen 2. Hx of DVT/PE - continue xarelto 3. Epilepsy - continue home medications 4. Hyponatremia - chronic, continue salt tabs, 1800 ml fluid restriction 5. Opiate abuse - continue suboxone 6. Anxiety - continue home medications DVT Prophylaxis: Xarelto Review Statement Review Statement: I have personally discussed and reviewed the patient's visit/currently labs/imaging/decision making with Dr. Stone, my supervising attending. Greater that 50 minutes spent with patient, 50% of the time spent with this patient was devoted to counseling and coordination of care.
[2025-02-16] MEDS: LASIX IVP ONE (10:14)
[2025-02-16] MEDS: LOPRESSOR IVP ONE (11:27)
[2025-02-17 05:02] LABS: IMMATURE GRANULOCYTE # (AUTO) 0.1 (0.0-1.0); IMMATURE GRANULOCYTE % (AUTO) 0.7 % (0.0-5.0); RDW COEFFICIENT OF VARIATION 15.2 % (11.6-14.8)
[2025-02-17 05:17] LABS: CREATININE 0.65 mg/dL (0.60-1.30)
[2025-02-17] MEDS: ATARAX PO PRN (08:21)
--- NOTE | 2025-02-17 09:51 | PCM.PROG ---
Date/Time Seen Date Seen by Provider: 02/17/25 Time Seen by Provider: 09:00 Provider Provider: [facility]ANT[facility] Chief Complaint Chief Complaint: PNEUMONIA Subjective Subjective: Feeling better today. Reports much improvement in breathing. Mild congestion still present but improving. Objective Appearance: Positive No Apparent Distress, Alert and Oriented x3 and Ill- Appearing Chest/Lungs: Positive Symmetrical With Equal Breath Sounds, Wheezes (mild inspiratory R lung base) and Good Air Movement all 4 Lung [place] Heart: Positive RRR and Pulses Normal GI/: Positive Soft, Nontender, Bowel Sounds Normal and No Distention Musculoskeletal: Positive Not Examined Neurological: Positive Sensation Intact, Motor intact, Reflexes Intact, Alert, Oriented and Muscle Strength 5/5 in Upper and Lower Extremities Bilaterally Vital Signs Vital Signs: Vital Signs: Last 24 Hours 02/16/25 10:00 02/16/25 10:00 02/16/25 13:00 Temperature 98.0 F Temperature Source Temporal Artery Scan Pulse Rate 100 Respiratory Rate 14 Blood Pressure 92/57 L Blood Pressure Mean 68 Blood Pressure Location Left Arm Blood Pressure Position O2 Sat by Pulse Oximetry 96 97 Oxygen Delivery Method Room Air Room Air Telemetry Type Remote Telemetry Telemetry Monitoring Continues Irregular Telemetry Rate (Approximate) Telemetry Heart Rate 103 H Telemetry SPO2 93 EKG IA Interval 0.12 EKG QRS Interval 0.08 Telemetry Strip Reading SINUS TACH 02/16/25 14:00 02/16/25 14:00 02/16/25 18:00 Temperature 97.3 F L 97.6 F Temperature Source Temporal Artery Scan Temporal Artery Scan Pulse Rate 106 H 102 H Respiratory Rate 14 16 Blood Pressure 101/56 L 114/67 Blood Pressure Mean 71 82 Blood Pressure Location Left Arm Left Arm Blood Pressure Position Sitting O2 Sat by Pulse Oximetry 94 L 93 L 95 Oxygen Delivery Method Room Air Room Air Room Air Telemetry Type Telemetry Monitoring Irregular Telemetry Rate (Approximate) Telemetry Heart Rate Telemetry SPO2 EKG IA Interval EKG QRS Interval Telemetry Strip Reading 02/16/25 19:00 02/16/25 20:00 02/16/25 20:00 Temperature Temperature Source Pulse Rate Respiratory Rate Blood Pressure Blood Pressure Mean Blood Pressure Location Blood Pressure Position O2 Sat by Pulse Oximetry Oxygen Delivery Method Room Air Room Air Telemetry Type Remote Telemetry Telemetry Monitoring Continues Irregular Telemetry Rate (Approximate) Telemetry Heart Rate 111 H Telemetry SPO2 94 EKG IA Interval 0.12 EKG QRS Interval 0.08 Telemetry Strip Reading sr 02/16/25 21:47 02/17/25 01:00 02/17/25 02:00 Temperature 97.7 F 97.3 F L Temperature Source Temporal Artery Scan Temporal Artery Scan Pulse Rate 104 H 96 Respiratory Rate 20 16 Blood Pressure 119/63 99/62 Blood Pressure Mean 81 74 Blood Pressure Location Left Arm Left Arm Blood Pressure Position Sitting Supine O2 Sat by Pulse Oximetry 97 93 L Oxygen Delivery Method Room Air Room Air Telemetry Type Remote Telemetry Telemetry Monitoring Continues Irregular Telemetry Rate (Approximate) Telemetry Heart Rate 100 Telemetry SPO2 94 EKG IA Interval 0.15 EKG QRS Interval 0.08 Telemetry Strip Reading SR 02/17/25 05:34 02/17/25 05:55 02/17/25 07:00 Temperature 97 F L Temperature Source Temporal Artery Scan Pulse Rate 87 Respiratory Rate 18 Blood Pressure 100/52 L Blood Pressure Mean 68 Blood Pressure Location Left Arm Blood Pressure Position Supine O2 Sat by Pulse Oximetry 96 Oxygen Delivery Method Room Air Room Air Telemetry Type Remote Telemetry Telemetry Monitoring Continues Irregular Telemetry Rate (Approximate) 70-80 BPM Telemetry Heart Rate 78 Telemetry SPO2 97 EKG IA Interval 0.14 EKG QRS Interval 0.07 Telemetry Strip Reading NSR Lab Results Lab Results: Lab Results: Last 24 Hours 02/17/25 02/15/25 04:42 22:33 WBC 8.83 RBC 3.72 L Hgb 10.8 L Hct 34.3 L MCV 92.2 MCH 29.0 MCHC 31.5 L RDW Coeff of Tomas 15.2 H Plt Count 182 Immature Gran % (Auto) 0.7 Neut % (Auto) 83.6 H Lymph % (Auto) 11.2 [place] % (Auto) 4.5 Eos % (Auto) 0.0 Baso % (Auto) 0.0 Neut # (Auto) 7.4 H Lymph # (Auto) 1.0 [place] # (Auto) 0.4 Eos # (Auto) 0.0 Baso # (Auto) 0.0 Immature Gran # (Auto) 0.1 Sodium 134.5 Potassium 4.45 Chloride 103.5 Carbon Dioxide 26.6 Anion Gap 8.85 BUN 26.2 H Creatinine 0.65 Estimated GFR (MDRD) 99.00 BUN/Creatinine Ratio 40.30 Glucose 111.9 H Calcium 9.54 Total Bilirubin 0.30 AST 22.4 ALT 28.8 Alkaline Phosphatase 155.3 H Total Protein 7.18 Albumin 3.87 Globulin 3.31 Albumin/Globulin Ratio 1.16 Gentamicin Peak 4.7 L Additional Comments Additional Comments: I have independently reviewed and interpreted the labs/EKGs/imaging ordered during this hospital stay. I have reviewed outside records that are available in our EMR that pertain to medical stay including imaging/notes/labs from previous visits. Active Medications Active Medications: Medications Generic Name Dose Route Start Last Admin Trade Name Freq PRN Reason Stop Dose Admin Acetaminophen 650 mg 02/15/25 13:03 02/15/25 13:26 Acetaminophen 325 Mg Tablet PO 650 mg Q4H PRN Administration Pain Albuterol/Ipratropium 3 ml 02/15/25 14:00 02/17/25 05:31 Ipratropium/Albuterol Vial.Neb NEB 3 ml RTQ4H RACHAEL Administration Amitriptyline HCl 25 mg 02/15/25 01:20 02/16/25 20:37 Amitriptyline Hcl 25 Mg Tablet PO 25 mg BEDTIME RACHAEL Administration Azelastine HCl 1 spray 02/15/25 09:00 02/17/25 08:10 Azelastine Hcl 30 Ml Nasal [place] SHAHID 1 spray BID RACHAEL Administration Celecoxib 200 mg 02/16/25 07:30 02/17/25 08:13 Celecoxib 100 Mg Capsule PO 200 mg DAILYWM2 RACHAEL Administration Cholecalciferol 5,000 unit 02/15/25 09:00 02/17/25 08:13 Cholecalciferol (Vitamin D3) 1,000 Unit (25 Mcg) Tablet PO 5,000 unit DAILY RACHAEL Administration Diphenhydramine HCl 50 mg 02/15/25 02:46 Diphenhydramine Hcl 25 Mg Capsule PO DAILY PRN Allergy Symptoms Guaifenesin 1,200 mg 02/15/25 09:00 02/17/25 08:14 Guaifenesin 600 Mg Tablet.Er PO 1,200 mg BID RACHAEL Administration Hydroxyzine HCl 25 mg 02/15/25 01:20 02/17/25 08:21 Hydroxyzine Hcl 25 Mg Tablet PO 25 mg BID PRN Administration Anxiety Tobramycin Sulfate 400 mg/ 110 mls @ 100 mls/hr 02/16/25 13:00 02/16/25 13:10 Sodium Chloride IV 02/22/25 14:05 100 mls/hr DAILY@1300 RACHAEL Administration Levetiracetam 1,000 mg 02/15/25 09:00 02/17/25 08:12 Levetiracetam 500 Mg Tablet PO 1,000 mg BID RACHAEL Administration Levothyroxine Sodium 100 mcg 02/16/25 06:00 02/17/25 05:24 Levothyroxine Sodium 100 Mcg Tablet PO 100 mcg QDAC2 RACHAEL Administration Methylprednisolone Sodium Succinate 40 mg 02/15/25 05:00 02/17/25 05:24 Methylprednisolone Sod Succ/Pf 40 Mg/Ml Vial IVP 40 mg Q8HR RACHAEL Administration Montelukast Sodium 10 mg 02/15/25 09:00 02/17/25 08:14 Montelukast Sodium 10 Mg Tablet PO 10 mg DAILY RACHAEL Administration Non-Formulary Medication 1 film 02/15/25 21:00 02/17/25 08:53 Buprenorphine-Naloxone [Suboxone] BUCCAL 1 film BID RACHAEL Administration Ondansetron HCl 4 mg 02/15/25 01:20 Ondansetron Hcl 4 Mg Tablet PO Q8H PRN Nausea / Vomiting Pantoprazole Sodium 40 mg 02/15/25 09:00 02/17/25 05:24 Pantoprazole Sodium 40 Mg Tablet.Dr PO 40 mg QDAC2 RACHAEL Administration Potassium Chloride 20 meq 02/15/25 07:30 02/17/25 08:13 Potassium Chloride 20 Meq Tab PO 20 meq DAILYWM2 RACHAEL Administration Pregabalin 100 mg 02/15/25 09:00 02/17/25 08:13 Pregabalin 50 Mg Capsule PO 100 mg BID RACHAEL Administration Rivaroxaban 20 mg 02/15/25 17:00 02/16/25 16:39 Rivaroxaban 10 Mg Tablet PO 20 mg QPM RACHAEL Administration Sertraline HCl 100 mg 02/15/25 09:00 02/17/25 08:14 Sertraline Hcl 50 Mg Tablet PO 100 mg DAILY RACHAEL Administration Sumatriptan Succinate 25 mg 02/15/25 01:20 Sumatriptan Succinate 25 Mg Tablet PO DAILY PRN MIGRAINE HEADACHE Topiramate 25 mg 02/15/25 09:00 02/17/25 08:12 Topiramate 50 Mg Tablet PO 25 mg BID RACHAEL Administration Trazodone HCl 100 mg 02/15/25 01:25 02/16/25 20:37 Trazodone Hcl 50 Mg Tablet PO 100 mg BEDTIME PRN Administration Insomnia Umeclidinium/Vilanterol 1 inh 02/15/25 09:00 02/17/25 08:10 Umeclidinium Brm/Vilanterol 1 Each Blst.W.Dev IH 1 inh DAILY RACHAEL Administration Vitamin B Complex 1 tab 02/15/25 11:00 02/17/25 08:12 Vitamin B-100 Complex 1 Tablet PO 1 tab DAILY RACHAEL Administration Plan Plan: 1. 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 Thompson ID with [facility] recommendations - follow up on 02/27, decrease nebs Q6H, sputum culture showing mixed maricarmen 2. Hx of DVT/PE - continue xarelto 3. Epilepsy - continue home medications 4. Hyponatremia - chronic, continue salt tabs, 1800 ml fluid restriction 5. Opiate abuse - continue suboxone 6. Anxiety - continue home medications DVT Prophylaxis: Xarelto Dispo: Unable to receive IV meds outpatient due to poor IV access and hx of drug use. Continue inpatient. Review Statement Review Statement: I have personally discussed and reviewed the patient's visit/currently labs/imaging/decision making with Dr. Stone, my supervising attending. Greater that 50 minutes spent with patient, 50% of the time spent with this patient was devoted to counseling and coordination of care.
[2025-02-17] MEDS: DUONEB NEB SCH (11:57)
[2025-02-18 05:50] LABS: IMMATURE GRANULOCYTE # (AUTO) 0.0 (0.0-1.0); IMMATURE GRANULOCYTE % (AUTO) 0.4 % (0.0-5.0); RDW COEFFICIENT OF VARIATION 15.2 % (11.6-14.8)
[2025-02-18 06:11] LABS: CREATININE 0.62 mg/dL (0.60-1.30)
[2025-02-18] MEDS: OMNIPAQUE 350 MG/ML 100ML IVP ONE (07:37)
[2025-02-18] MEDS: FLORASTOR PO SCH (09:00)
--- NOTE | 2025-02-18 11:53 | PCM.PROG ---
Date/Time Seen Date Seen by Provider: 02/18/25 Time Seen by Provider: 09:15 Provider Provider: [facility] Chief Complaint Chief Complaint: PNEUMONIA Subjective Subjective: Patient is overall feeling improved. On RA. Has some pleurisy pain. As a recap, this patient had ARDS requiring prolonged intubation, ECMO, and trach in [place] earlier this year. She has been having issues with recurrent pneumonia since. She had completed doxycycline outpatient but no improvement, her production machinist recommended she present to hospital. She presented to [facility] and was hospitalized 01/26-01/29 during which she was found to have continued right sided pneumonia. She had a bronchoscopy with lavage. She was discharged home with levaquin x 7 days. She presents to this hospital with continued symptoms. Cultures from bronch have resulted pseudomonas aeruginosa, resistant to levaquin and several other options. Previous hospitalist spoke with infectious disease provider that will be following up with the patient and he recommended tobramycin IV x7 days since we are unable to get avycaz. Patient was a very difficult stick for peripheral IV. Objective Appearance: Positive No Apparent Distress, Alert and Oriented x3 and Ill- Appearing Chest/Lungs: Positive Symmetrical With Equal Breath Sounds and Good Air Movement all 4 Lung Meza; Negative Rales, Rhonci or Wheezes Heart: Positive RRR and Pulses Normal GI/: Positive Soft, Nontender, Bowel Sounds Normal and No Distention Musculoskeletal: Positive Not Examined Neurological: Positive Sensation Intact, Motor intact, Alert, Oriented and Muscle Strength 5/5 in Upper and Lower Extremities Bilaterally Vital Signs Vital Signs: Vital Signs: Last 24 Hours 02/17/25 13:00 02/17/25 14:00 02/17/25 14:00 Temperature 97.2 F L Temperature Source Temporal Artery Scan Pulse Rate 83 Respiratory Rate 16 Blood Pressure 108/75 Blood Pressure Mean 86 Blood Pressure Location Left Arm Blood Pressure Position Sitting O2 Sat by Pulse Oximetry 96 100 Oxygen Delivery Method Room Air Room Air Telemetry Type Remote Telemetry Telemetry Monitoring Continues Telemetry Heart Rate 112 H Telemetry SPO2 96 EKG SD Interval 0.12 EKG QRS Interval 0.07 Telemetry Strip Reading Sinus tachy 02/17/25 18:00 02/17/25 19:00 02/17/25 19:38 Temperature 97.4 F L Temperature Source Temporal Artery Scan Pulse Rate 120 H Respiratory Rate 20 Blood Pressure 114/70 Blood Pressure Mean 84 Blood Pressure Location Right Arm Blood Pressure Position Sitting O2 Sat by Pulse Oximetry 100 Oxygen Delivery Method Room Air Room Air Telemetry Type Remote Telemetry Telemetry Monitoring Continues Telemetry Heart Rate 102 H Telemetry SPO2 97 EKG SD Interval 0.15 EKG QRS Interval 0.[address] 02/17/25 20:00 02/17/25 21:43 02/18/25 01:00 Temperature 98.0 F Temperature Source Tympanic Pulse Rate 98 Respiratory Rate 16 Blood Pressure 101/66 Blood Pressure Mean 77 Blood Pressure Location Left Arm Blood Pressure Position Supine O2 Sat by Pulse Oximetry 98 Oxygen Delivery Method Room Air Room Air Telemetry Type Remote Telemetry Telemetry Monitoring Continues Telemetry Heart Rate 114 H Telemetry SPO2 94 EKG SD Interval 0.19 EKG QRS Interval 0.[address] 02/18/25 01:55 02/18/25 05:45 02/18/25 05:53 Temperature 98.3 F 97.4 F L Temperature Source Tympanic Tympanic Pulse Rate 98 94 Respiratory Rate 16 16 Blood Pressure 101/66 106/68 Blood Pressure Mean 77 80 Blood Pressure Location Left Arm Left Arm Blood Pressure Position Supine Supine O2 Sat by Pulse Oximetry 94 L 100 100 Oxygen Delivery Method Room Air Room Air Room Air Telemetry Type Telemetry Monitoring Telemetry Heart Rate Telemetry SPO2 EKG SD Interval EKG QRS Interval Telemetry Strip Reading 02/18/25 07:00 02/18/25 08:00 02/18/25 10:00 Temperature 97.1 F L Temperature Source Temporal Artery Scan Pulse Rate 83 Respiratory Rate Blood Pressure 122/70 Blood Pressure Mean 87 Blood Pressure Location Right Arm Blood Pressure Position Supine O2 Sat by Pulse Oximetry 97 Oxygen Delivery Method Room Air Room Air Telemetry Type Remote Telemetry Telemetry Monitoring Continues Telemetry Heart Rate 87 Telemetry SPO2 97 EKG SD Interval 0.15 EKG QRS Interval 0.06 Telemetry Strip Reading SR 02/18/25 10:00 Temperature Temperature Source Pulse Rate Respiratory Rate Blood Pressure Blood Pressure Mean Blood Pressure Location Blood Pressure Position O2 Sat by Pulse Oximetry 98 Oxygen Delivery Method Room Air Telemetry Type Telemetry Monitoring Telemetry Heart Rate Telemetry SPO2 EKG SD Interval EKG QRS Interval Telemetry Strip Reading Lab Results Lab Results: Lab Results: Last 24 Hours 02/18/25 05:30 WBC 7.27 RBC 3.72 L Hgb 10.6 L Hct 35.0 L MCV 94.1 MCH 28.5 MCHC 30.3 L RDW Coeff of Tomas 15.2 H Plt Count 193 Immature Gran % (Auto) 0.4 Neut % (Auto) 74.3 Lymph % (Auto) 19.3 [place] % (Auto) 5.9 Eos % (Auto) 0.0 Baso % (Auto) 0.1 Neut # (Auto) 5.4 Lymph # (Auto) 1.4 [place] # (Auto) 0.4 Eos # (Auto) 0.0 Baso # (Auto) 0.0 Immature Gran # (Auto) 0.0 Sodium 135.4 Potassium 4.71 Chloride 103.5 Carbon Dioxide 24.1 Anion Gap 12.51 BUN 26.7 H Creatinine 0.62 Estimated GFR (MDRD) 104.00 BUN/Creatinine Ratio 43.06 Glucose 96.6 Calcium 9.23 Magnesium 1.81 Total Bilirubin 0.52 AST 25.2 ALT 24.5 Alkaline Phosphatase 108.6 D Total Protein 6.91 Albumin 3.74 Globulin 3.17 Albumin/Globulin Ratio 1.17 Additional Comments Additional Comments: I have independently reviewed and interpreted the labs/EKGs/imaging ordered during this hospital stay. I have reviewed outside records that are available in our EMR that pertain to medical stay including imaging/notes/labs from previous visits. Active Medications Active Medications: Medications Generic Name Dose Route Start Last Admin Trade Name Freq PRN Reason Stop Dose Admin Acetaminophen 650 mg 02/15/25 13:03 02/15/25 13:26 Acetaminophen 325 Mg Tablet PO 650 mg Q4H PRN Administration Pain Albuterol/Ipratropium 3 ml 02/17/25 12:00 02/18/25 11:19 Ipratropium/Albuterol Vial.Neb NEB 3 ml RTQ6H RACHAEL Administration Amitriptyline HCl 25 mg 02/15/25 01:20 02/17/25 21:21 Amitriptyline Hcl 25 Mg Tablet PO 25 mg BEDTIME RACHAEL Administration Azelastine HCl 1 spray 02/15/25 09:00 02/18/25 08:56 Azelastine Hcl 30 Ml Nasal Foley SHAHID 1 spray BID RACHAEL Administration Celecoxib 200 mg 02/16/25 07:30 02/18/25 08:57 Celecoxib 100 Mg Capsule PO 200 mg DAILYWM2 RACHAEL Administration Cholecalciferol 5,000 unit 02/15/25 09:00 02/18/25 08:57 Cholecalciferol (Vitamin D3) 1,000 Unit (25 Mcg) Tablet PO 5,000 unit DAILY RACHAEL Administration Diphenhydramine HCl 50 mg 02/15/25 02:46 Diphenhydramine Hcl 25 Mg Capsule PO DAILY PRN Allergy Symptoms Guaifenesin 1,200 mg 02/15/25 09:00 02/18/25 08:58 Guaifenesin 600 Mg Tablet.Er PO 1,200 mg BID RACHAEL Administration Hydroxyzine HCl 25 mg 02/15/25 01:20 02/17/25 08:21 Hydroxyzine Hcl 25 Mg Tablet PO 25 mg BID PRN Administration Anxiety Tobramycin Sulfate 400 mg/ 110 mls @ 100 mls/hr 02/16/25 13:00 02/17/25 13:26 Sodium Chloride IV 02/22/25 14:05 100 mls/hr DAILY@1300 RACHAEL Administration Levetiracetam 1,000 mg 02/15/25 09:00 02/18/25 08:57 Levetiracetam 500 Mg Tablet PO 1,000 mg BID RACHAEL Administration Levothyroxine Sodium 100 mcg 02/16/25 06:00 02/18/25 05:58 Levothyroxine Sodium 100 Mcg Tablet PO 100 mcg QDAC2 RACHAEL Administration Methylprednisolone Sodium Succinate 40 mg 02/15/25 05:00 02/18/25 05:58 Methylprednisolone Sod Succ/Pf 40 Mg/Ml Vial IVP 40 mg Q8HR RACHAEL Administration Montelukast Sodium 10 mg 02/15/25 09:00 02/18/25 08:58 Montelukast Sodium 10 Mg Tablet PO 10 mg DAILY RACHAEL Administration Non-Formulary Medication 1 film 02/15/25 21:00 02/18/25 09:00 Buprenorphine-Naloxone [Suboxone] BUCCAL 1 film BID RACHAEL Administration Ondansetron HCl 4 mg 02/15/25 01:20 Ondansetron Hcl 4 Mg Tablet PO Q8H PRN Nausea / Vomiting Pantoprazole Sodium 40 mg 02/15/25 09:00 02/18/25 05:58 Pantoprazole Sodium 40 Mg Tablet.Dr PO 40 mg QDAC2 RACHAEL Administration Potassium Chloride 20 meq 02/15/25 07:30 02/18/25 08:58 Potassium Chloride 20 Meq Tab PO 20 meq DAILYWM2 RACHAEL Administration Pregabalin 100 mg 02/15/25 09:00 02/18/25 08:57 Pregabalin 50 Mg Capsule PO 100 mg BID RACHAEL Administration Rivaroxaban 20 mg 02/15/25 17:00 02/17/25 17:54 Rivaroxaban 10 Mg Tablet PO 20 mg QPM RACHAEL Administration Saccharomyces Boulardii 250 mg 02/18/25 09:00 02/18/25 09:00 Saccharomyces Boulardii 250 Mg Capsule PO 250 mg BID RACHAEL Administration Sertraline HCl 100 mg 02/15/25 09:00 02/18/25 08:57 Sertraline Hcl 50 Mg Tablet PO 100 mg DAILY RACHAEL Administration Sumatriptan Succinate 25 mg 02/15/25 01:20 Sumatriptan Succinate 25 Mg Tablet PO DAILY PRN MIGRAINE HEADACHE Topiramate 25 mg 02/15/25 09:00 02/18/25 08:58 Topiramate 50 Mg Tablet PO 25 mg BID RACHAEL Administration Trazodone HCl 100 mg 02/15/25 01:25 02/18/25 00:25 Trazodone Hcl 50 Mg Tablet PO 100 mg BEDTIME PRN Administration Insomnia Umeclidinium/Vilanterol 1 inh 02/15/25 09:00 02/18/25 08:57 Umeclidinium Brm/Vilanterol 1 Each Blst.W.Dev IH 1 inh DAILY RACHAEL Administration Vitamin B Complex 1 tab 02/15/25 11:00 02/18/25 08:57 Vitamin B-100 Complex 1 Tablet PO 1 tab DAILY RACHAEL Administration Plan Plan: 1. 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 Thompson ID with [facility] recommendations - follow up apt on 02/27, decrease nebs Q6H, sputum culture showing mixed maricarmen. 2. Hx of DVT/PE - continue xarelto 3. Epilepsy - continue home medications 4. Hyponatremia - chronic, continue salt tabs, 1800 ml fluid restriction 5. Hx of opiate abuse - continue suboxone 6. Anxiety - continue home medications DVT Prophylaxis: Xarelto Dispo: Unable to receive IV meds outpatient due to poor IV access and hx of drug use. Continue inpatient, last dose of IV abx on 02/22. High risk of readmission otherwise as her bronch cultures show MDR pseudomonas. Review Statement Review Statement: I have personally discussed and reviewed the patient's visit/currently labs/imaging/decision making with Dr. Stone, my supervising attending. Greater that 50 minutes spent with patient, 50% of the time spent with this patient was devoted to counseling and coordination of care.
[2025-02-18] MEDS ORDERED: DUONEB NEB PRN (12:52)
[2025-02-18] MEDS: IMITREX PO PRN (22:29)
[2025-02-19 05:47] LABS: IMMATURE GRANULOCYTE # (AUTO) 0.0 (0.0-1.0); IMMATURE GRANULOCYTE % (AUTO) 0.4 % (0.0-5.0); RDW COEFFICIENT OF VARIATION 15.2 % (11.6-14.8)
[2025-02-19 05:56] LABS: CREATININE 0.62 mg/dL (0.60-1.30)
--- NOTE | 2025-02-19 14:06 | PCM.PROG ---
Date/Time Seen Date Seen by Provider: 02/19/25 Time Seen by Provider: 14:00 Provider Provider: LUCILLE ANDERS PA-C, [facility] Chief Complaint Chief Complaint: PNEUMONIA Subjective Subjective: Patient has no complaints today, feeling better each day. Objective Appearance: Positive No Apparent Distress and Alert and Oriented x3 Chest/Lungs: Positive Symmetrical With Equal Breath Sounds and Good Air Movement all 4 Lung Meza; Negative Rales, Rhonci or Wheezes Heart: Positive RRR and Pulses Normal GI/: Positive Soft, Nontender, Bowel Sounds Normal and No Distention Musculoskeletal: Positive Not Examined Neurological: Positive Sensation Intact, Motor intact, Alert, Oriented and Muscle Strength 5/5 in Upper and Lower Extremities Bilaterally Vital Signs Vital Signs: Vital Signs: Last 24 Hours 02/18/25 18:00 02/18/25 19:00 02/18/25 19:37 Temperature 97.4 F L Temperature Source Temporal Artery Scan Pulse Rate 101 H Respiratory Rate Blood Pressure 122/77 Blood Pressure Mean 92 Blood Pressure Location Left Arm Blood Pressure Position Supine O2 Sat by Pulse Oximetry 95 Oxygen Delivery Method Room Air Room Air Height Weight Telemetry Type Remote Telemetry Telemetry Monitoring Continues Irregular Telemetry Rate (Approximate) Telemetry Heart Rate 93 Telemetry SPO2 96 EKG MS Interval 0.13 EKG QRS Interval 0.06 Telemetry Strip Reading SR 02/18/25 19:37 02/18/25 21:27 02/19/25 01:00 Temperature 98.6 F Temperature Source Tympanic Pulse Rate 91 Respiratory Rate 20 Blood Pressure 116/75 Blood Pressure Mean 88 Blood Pressure Location Left Arm Blood Pressure Position Sitting O2 Sat by Pulse Oximetry 95 95 Oxygen Delivery Method Room Air Room Air Height Weight Telemetry Type Remote Telemetry Telemetry Monitoring Continues Irregular Telemetry Rate (Approximate) Telemetry Heart Rate 96 Telemetry SPO2 95 EKG MS Interval 0.17 EKG QRS Interval 0.08 Telemetry Strip Reading SR 02/19/25 01:48 02/19/25 05:19 02/19/25 06:00 Temperature 97.5 F L 97.5 F L Temperature Source Tympanic Temporal Artery Scan Pulse Rate 95 85 Respiratory Rate 14 16 Blood Pressure 97/53 L 96/53 L Blood Pressure Mean 67 67 Blood Pressure Location Left Arm Left Arm Blood Pressure Position Supine Supine O2 Sat by Pulse Oximetry 95 96 95 Oxygen Delivery Method Room Air Room Air Room Air Height Weight Telemetry Type Telemetry Monitoring Irregular Telemetry Rate (Approximate) Telemetry Heart Rate Telemetry SPO2 EKG MS Interval EKG QRS Interval Telemetry Strip Reading 02/19/25 07:00 02/19/25 08:00 02/19/25 10:00 Temperature 97.6 F Temperature Source Temporal Artery Scan Pulse Rate 89 Respiratory Rate Blood Pressure 102/58 L Blood Pressure Mean 72 Blood Pressure Location Right Arm Blood Pressure Position Supine O2 Sat by Pulse Oximetry 95 Oxygen Delivery Method Room Air Room Air Height Weight Telemetry Type Remote Telemetry Telemetry Monitoring Continues Irregular Telemetry Rate (Approximate) 70-80 BPM Telemetry Heart Rate 77 Telemetry SPO2 EKG MS Interval 0.14 EKG QRS Interval 0.08 Telemetry Strip Reading NSR 02/19/25 10:00 02/19/25 12:20 Temperature Temperature Source Pulse Rate Respiratory Rate Blood Pressure Blood Pressure Mean Blood Pressure Location Blood Pressure Position O2 Sat by Pulse Oximetry 95 Oxygen Delivery Method Room Air Height 5 ft Weight 70.1 kg Telemetry Type Telemetry Monitoring Irregular Telemetry Rate (Approximate) Telemetry Heart Rate Telemetry SPO2 EKG MS Interval EKG QRS Interval Telemetry Strip Reading Lab Results Lab Results: Lab Results: Last 24 Hours 02/19/25 02/19/25 08:53 05:32 WBC 7.05 RBC 3.66 L Hgb 10.5 L Hct 34.6 L MCV 94.5 MCH 28.7 MCHC 30.3 L RDW Coeff of Tomas 15.2 H Plt Count 195 Immature Gran % (Auto) 0.4 Neut % (Auto) 60.9 Lymph % (Auto) 29.9 [place] % (Auto) 7.2 Eos % (Auto) 1.3 Baso % (Auto) 0.3 Neut # (Auto) 4.3 Lymph # (Auto) 2.1 [place] # (Auto) 0.5 Eos # (Auto) 0.1 Baso # (Auto) 0.0 Immature Gran # (Auto) 0.0 Sodium 133.7 L Potassium 4.06 Chloride 102.2 Carbon Dioxide 25.6 Anion Gap 9.96 BUN 23.1 H Creatinine 0.62 Estimated GFR (MDRD) 104.00 BUN/Creatinine Ratio 37.25 Glucose 95.0 Calcium 8.84 Total Bilirubin 0.32 AST 21.0 ALT 25.3 Alkaline Phosphatase 108.0 Total Protein 6.21 L Albumin 3.37 L Globulin 2.84 Albumin/Globulin Ratio 1.18 Miscellaneous Test 3.40 Additional Comments Additional Comments: I have independently reviewed and interpreted the labs/EKGs/imaging ordered during this hospital stay. I have reviewed outside records that are available in our EMR that pertain to medical stay including imaging/notes/labs from previous visits. Active Medications Active Medications: Medications Generic Name Dose Route Start Last Admin Trade Name Freq PRN Reason Stop Dose Admin Acetaminophen 650 mg 02/15/25 13:03 02/18/25 20:01 Acetaminophen 325 Mg Tablet PO 650 mg Q4H PRN Administration Pain Albuterol/Ipratropium 3 ml 02/18/25 12:52 Ipratropium/Albuterol Vial.Neb NEB RTQ6H PRN sob Amitriptyline HCl 25 mg 02/15/25 01:20 02/18/25 20:01 Amitriptyline Hcl 25 Mg Tablet PO 25 mg BEDTIME RACHAEL Administration Azelastine HCl 1 spray 02/15/25 09:00 02/19/25 08:13 Azelastine Hcl 30 Ml Nasal [place] SHAHID 1 spray BID RACHAEL Administration Celecoxib 200 mg 02/16/25 07:30 02/19/25 08:08 Celecoxib 100 Mg Capsule PO 200 mg DAILYWM2 RACHAEL Administration Cholecalciferol 5,000 unit 02/15/25 09:00 02/19/25 08:06 Cholecalciferol (Vitamin D3) 1,000 Unit (25 Mcg) Tablet PO 5,000 unit DAILY RACHAEL Administration Diphenhydramine HCl 50 mg 02/15/25 02:46 Diphenhydramine Hcl 25 Mg Capsule PO DAILY PRN Allergy Symptoms Guaifenesin 1,200 mg 02/15/25 09:00 02/19/25 08:07 Guaifenesin 600 Mg Tablet.Er PO 1,200 mg BID RACHAEL Administration Hydroxyzine HCl 25 mg 02/15/25 01:20 02/17/25 08:21 Hydroxyzine Hcl 25 Mg Tablet PO 25 mg BID PRN Administration Anxiety Tobramycin Sulfate 400 mg/ 110 mls @ 100 mls/hr 02/16/25 13:00 02/18/25 13:01 Sodium Chloride IV 02/22/25 14:05 100 mls/hr DAILY@1300 RACHAEL Administration Levetiracetam 1,000 mg 02/15/25 09:00 02/19/25 08:10 Levetiracetam 500 Mg Tablet PO 1,000 mg BID RACHAEL Administration Levothyroxine Sodium 100 mcg 02/16/25 06:00 02/19/25 05:19 Levothyroxine Sodium 100 Mcg Tablet PO 100 mcg QDAC2 RACHAEL Administration Montelukast Sodium 10 mg 02/15/25 09:00 02/19/25 08:12 Montelukast Sodium 10 Mg Tablet PO 10 mg DAILY RACHAEL Administration Non-Formulary Medication 1 film 02/15/25 21:00 02/19/25 08:12 Buprenorphine-Naloxone [Suboxone] BUCCAL 1 film BID RACHAEL Administration Ondansetron HCl 4 mg 02/15/25 01:20 Ondansetron Hcl 4 Mg Tablet PO Q8H PRN Nausea / Vomiting Pantoprazole Sodium 40 mg 02/15/25 09:00 02/19/25 05:19 Pantoprazole Sodium 40 Mg Tablet.Dr PO 40 mg QDAC2 RACHAEL Administration Potassium Chloride 20 meq 02/15/25 07:30 02/19/25 08:06 Potassium Chloride 20 Meq Tab PO 20 meq DAILYWM2 RACHAEL Administration Pregabalin 100 mg 02/15/25 09:00 02/19/25 08:07 Pregabalin 50 Mg Capsule PO 100 mg BID RACHAEL Administration Rivaroxaban 20 mg 02/15/25 17:00 02/18/25 16:59 Rivaroxaban 10 Mg Tablet PO 20 mg QPM RACHAEL Administration Saccharomyces Boulardii 250 mg 02/18/25 09:00 02/19/25 08:12 Saccharomyces Boulardii 250 Mg Capsule PO 250 mg BID RACHAEL Administration Sertraline HCl 100 mg 02/15/25 09:00 02/19/25 08:10 Sertraline Hcl 50 Mg Tablet PO 100 mg DAILY RACHAEL Administration Sumatriptan Succinate 25 mg 02/15/25 01:20 02/18/25 22:29 Sumatriptan Succinate 25 Mg Tablet PO 25 mg DAILY PRN Administration MIGRAINE HEADACHE Topiramate 25 mg 02/15/25 09:00 02/19/25 08:08 Topiramate 50 Mg Tablet PO 25 mg BID RACHAEL Administration Trazodone HCl 100 mg 02/15/25 01:25 02/19/25 00:24 Trazodone Hcl 50 Mg Tablet PO 100 mg BEDTIME PRN Administration Insomnia Umeclidinium/Vilanterol 1 inh 02/15/25 09:00 02/19/25 08:05 Umeclidinium Brm/Vilanterol 1 Each Blst.W.Dev IH 1 inh DAILY RACHAEL Administration Vitamin B Complex 1 tab 02/15/25 11:00 02/19/25 08:07 Vitamin B-100 Complex 1 Tablet PO 1 tab DAILY RACHAEL Administration Plan Plan: 1. 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 Thompson [facility] - follow up apt on 02/27, decrease nebs Q6H, sputum culture showing mixed maricarmen. 2. Hx of DVT/PE - continue xarelto 3. Epilepsy - continue home medications 4. Hyponatremia - chronic, continue salt tabs, 1800 ml fluid restriction 5. Hx of opiate abuse - continue suboxone 6. Anxiety - continue home medications DVT Prophylaxis: Xarelto Dispo: Unable to receive IV meds outpatient due to poor IV access and hx of drug use. Continue inpatient, last dose of IV abx on 02/22. High risk of readmission otherwise as her bronch cultures show MDR pseudomonas. Review Statement Review Statement: I have personally discussed and reviewed the patient's visit/currently labs/imaging/decision making with Dr. Stone, my supervising attending. Greater that 50 minutes spent with patient, 50% of the time spent with this patient was devoted to counseling and coordination of care.
[2025-02-20 07:27] LABS: IMMATURE GRANULOCYTE # (AUTO) 0.0 (0.0-1.0); IMMATURE GRANULOCYTE % (AUTO) 0.5 % (0.0-5.0); RDW COEFFICIENT OF VARIATION 15.1 % (11.6-14.8)
[2025-02-20 07:40] LABS: CREATININE 0.76 mg/dL (0.60-1.30)
--- NOTE | 2025-02-20 11:06 | PCM.PROG ---
Date/Time Seen Date Seen by Provider: 02/20/25 Time Seen by Provider: 09:30 Provider Provider: LUCILLE ANDERS PA-C, [facility] Chief Complaint Chief Complaint: PNEUMONIA Subjective Subjective: Patient has no complaints. Had some diarrhea yesterday but its better today. Objective Appearance: Positive No Apparent Distress and Alert and Oriented x3 Chest/Lungs: Positive Symmetrical With Equal Breath Sounds and Good Air Movement all 4 Lung Meza; Negative Rales, Rhonci or Wheezes Heart: Positive RRR and Pulses Normal GI/: Positive Soft, Nontender, Bowel Sounds Normal and No Distention Musculoskeletal: Positive Not Examined Neurological: Positive Sensation Intact, Motor intact, Alert, Oriented and Muscle Strength 5/5 in Upper and Lower Extremities Bilaterally Vital Signs Vital Signs: Vital Signs: Last 24 Hours 02/19/25 12:20 02/19/25 13:00 02/19/25 14:00 Temperature 97.6 F Temperature Source Temporal Artery Scan Pulse Rate 122 H Respiratory Rate Blood Pressure 118/71 Blood Pressure Mean 86 Blood Pressure Location Left Arm Blood Pressure Position Sitting O2 Sat by Pulse Oximetry 94 L Oxygen Delivery Method Room Air Height 5 ft Weight 70.1 kg Telemetry Type Remote Telemetry Telemetry Monitoring Continues Telemetry Heart Rate 102 H Telemetry SPO2 EKG ND Interval 0.12 EKG QRS Interval 0.06 Telemetry Strip Reading SINUS TACH 02/19/25 14:00 02/19/25 18:00 02/19/25 19:00 Temperature 97.7 F Temperature Source Temporal Artery Scan Pulse Rate 90 Respiratory Rate Blood Pressure 118/66 Blood Pressure Mean 83 Blood Pressure Location Left Arm Blood Pressure Position Supine O2 Sat by Pulse Oximetry 94 L 95 Oxygen Delivery Method Room Air Room Air Height Weight Telemetry Type Remote Telemetry Telemetry Monitoring Continues Telemetry Heart Rate 91 Telemetry SPO2 EKG ND Interval 0.12 EKG QRS Interval Telemetry Strip Reading SR 02/19/25 20:00 02/19/25 20:00 02/19/25 22:00 Temperature 97.8 F Temperature Source Tympanic Pulse Rate 108 H Respiratory Rate 16 Blood Pressure 94/53 L Blood Pressure Mean 66 Blood Pressure Location Left Arm Blood Pressure Position Sitting O2 Sat by Pulse Oximetry 93 L Oxygen Delivery Method Room Air Room Air Room Air Height Weight Telemetry Type Telemetry Monitoring Telemetry Heart Rate Telemetry SPO2 EKG ND Interval EKG QRS Interval Telemetry Strip Reading 02/20/25 01:00 02/20/25 01:34 02/20/25 05:35 Temperature 97.8 F 97.2 F L Temperature Source Tympanic Tympanic Pulse Rate 94 77 Respiratory Rate 14 14 Blood Pressure 87/54 L 89/56 L Blood Pressure Mean 65 67 Blood Pressure Location Left Arm Left Arm Blood Pressure Position Supine Supine O2 Sat by Pulse Oximetry 93 L 96 Oxygen Delivery Method Room Air Room Air Height Weight Telemetry Type Remote Telemetry Telemetry Monitoring Continues Telemetry Heart Rate 94 Telemetry SPO2 94 EKG ND Interval 0.19 EKG QRS Interval 0.05 L Telemetry Strip Reading SR 02/20/25 05:44 02/20/25 07:00 02/20/25 08:00 Temperature Temperature Source Pulse Rate Respiratory Rate Blood Pressure Blood Pressure Mean Blood Pressure Location Blood Pressure Position O2 Sat by Pulse Oximetry Oxygen Delivery Method Room Air Room Air Height Weight Telemetry Type Remote Telemetry Telemetry Monitoring Continues Telemetry Heart Rate 86 Telemetry SPO2 EKG ND Interval 0.14 EKG QRS Interval 0.06 Telemetry Strip Reading SR 02/20/25 10:00 Temperature 97.1 F L Temperature Source Temporal Artery Scan Pulse Rate 99 Respiratory Rate 16 Blood Pressure 92/56 L Blood Pressure Mean 68 Blood Pressure Location Left Arm Blood Pressure Position O2 Sat by Pulse Oximetry 92 L Oxygen Delivery Method Room Air Height Weight Telemetry Type Telemetry Monitoring Telemetry Heart Rate Telemetry SPO2 EKG ND Interval EKG QRS Interval Telemetry Strip Reading Lab Results Lab Results: Lab Results: Last 24 Hours 02/20/25 02/19/25 07:20 08:53 WBC 6.11 RBC 3.90 L Hgb 11.1 L Hct 36.5 L MCV 93.6 MCH 28.5 MCHC 30.4 L RDW Coeff of Tomas 15.1 H Plt Count 216 Immature Gran % (Auto) 0.5 Neut % (Auto) 53.4 Lymph % (Auto) 35.7 [place] % (Auto) 5.7 Eos % (Auto) 4.4 Baso % (Auto) 0.3 Neut # (Auto) 3.3 Lymph # (Auto) 2.2 [place] # (Auto) 0.4 Eos # (Auto) 0.3 Baso # (Auto) 0.0 Immature Gran # (Auto) 0.0 Sodium 135.2 Potassium 3.91 Chloride 100.5 Carbon Dioxide 29.4 Anion Gap 9.21 BUN 30.6 H Creatinine 0.76 Estimated GFR (MDRD) 82.00 BUN/Creatinine Ratio 40.26 Glucose 88.5 Calcium 8.76 Total Bilirubin 0.38 AST 55.8 H D ALT 42.4 H Alkaline Phosphatase 107.3 Total Protein 6.26 L Albumin 3.40 L Globulin 2.86 Albumin/Globulin Ratio 1.18 Miscellaneous Test 3.40 Additional Comments Additional Comments: I have independently reviewed and interpreted the labs/EKGs/imaging ordered [facility] this hospital stay. I have reviewed outside records that are available in our EMR that pertain to medical stay including imaging/notes/labs from previous visits. Active Medications Active Medications: Medications Generic Name Dose Route Start Last Admin Trade Name Freq PRN Reason Stop Dose Admin Acetaminophen 650 mg 02/15/25 13:03 02/20/25 09:04 Acetaminophen 325 Mg Tablet PO 650 mg Q4H PRN Administration Pain Albuterol/Ipratropium 3 ml 02/18/25 12:52 Ipratropium/Albuterol Vial.Neb NEB RTQ6H PRN sob Amitriptyline HCl 25 mg 02/15/25 01:20 02/19/25 20:30 Amitriptyline Hcl 25 Mg Tablet PO 25 mg BEDTIME RACHAEL Administration Azelastine HCl 1 spray 02/15/25 09:00 02/20/25 08:53 Azelastine Hcl 30 Ml Nasal [place] SHAHID 1 spray BID RACHAEL Administration Celecoxib 200 mg 02/16/25 07:30 02/20/25 08:54 Celecoxib 100 Mg Capsule PO 200 mg DAILYWM2 RACHAEL Administration Cholecalciferol 5,000 unit 02/15/25 09:00 02/20/25 08:53 Cholecalciferol (Vitamin D3) 1,000 Unit (25 Mcg) Tablet PO 5,000 unit DAILY RACHAEL Administration Diphenhydramine HCl 50 mg 02/15/25 02:46 Diphenhydramine Hcl 25 Mg Capsule PO DAILY PRN Allergy Symptoms Guaifenesin 1,200 mg 02/15/25 09:00 02/20/25 08:54 Guaifenesin 600 Mg Tablet.Er PO 1,200 mg BID RACHAEL Administration Hydroxyzine HCl 25 mg 02/15/25 01:20 02/19/25 20:27 Hydroxyzine Hcl 25 Mg Tablet PO 25 mg BID PRN Administration Anxiety Tobramycin Sulfate 400 mg/ 110 mls @ 100 mls/hr 02/20/25 13:00 Sodium Chloride IV 02/22/25 22:00 DAILY@1300 RACHAEL Levetiracetam 1,000 mg 02/15/25 09:00 02/20/25 08:54 Levetiracetam 500 Mg Tablet PO 1,000 mg BID RACHAEL Administration Levothyroxine Sodium 100 mcg 02/16/25 06:00 02/20/25 05:22 Levothyroxine Sodium 100 Mcg Tablet PO 100 mcg QDAC2 RACHAEL Administration Montelukast Sodium 10 mg 02/15/25 09:00 02/20/25 08:55 Montelukast Sodium 10 Mg Tablet PO 10 mg DAILY RACHAEL Administration Non-Formulary Medication 1 film 02/15/25 21:00 02/20/25 08:53 Buprenorphine-Naloxone [Suboxone] BUCCAL 1 film BID RACHAEL Administration Ondansetron HCl 4 mg 02/15/25 01:20 Ondansetron Hcl 4 Mg Tablet PO Q8H PRN Nausea / Vomiting Pantoprazole Sodium 40 mg 02/15/25 09:00 02/20/25 05:22 Pantoprazole Sodium 40 Mg Tablet.Dr PO 40 mg QDAC2 RACHAEL Administration Potassium Chloride 20 meq 02/15/25 07:30 02/20/25 08:55 Potassium Chloride 20 Meq Tab PO 20 meq DAILYWM2 RACHAEL Administration Pregabalin 100 mg 02/15/25 09:00 02/20/25 08:54 Pregabalin 50 Mg Capsule PO 100 mg BID RACHAEL Administration Rivaroxaban 20 mg 02/15/25 17:00 02/19/25 17:04 Rivaroxaban 10 Mg Tablet PO 20 mg QPM RACHAEL Administration Saccharomyces Boulardii 250 mg 02/18/25 09:00 02/20/25 08:54 Saccharomyces Boulardii 250 Mg Capsule PO 250 mg BID RACHAEL Administration Sertraline HCl 100 mg 02/15/25 09:00 02/20/25 08:54 Sertraline Hcl 50 Mg Tablet PO 100 mg DAILY RACHAEL Administration Sodium Chloride 1 syr 02/20/25 05:30 02/20/25 05:24 0.9% Sodium Chloride 10 Ml Disp.Syrin IVF 1 syr Q8HR RACHAEL Administration Sumatriptan Succinate 25 mg 02/15/25 01:20 02/18/25 22:29 Sumatriptan Succinate 25 Mg Tablet PO 25 mg DAILY PRN Administration MIGRAINE HEADACHE Topiramate 25 mg 02/15/25 09:00 02/20/25 08:54 Topiramate 50 Mg Tablet PO 25 mg BID RACHAEL Administration Trazodone HCl 100 mg 02/15/25 01:25 02/20/25 00:13 Trazodone Hcl 50 Mg Tablet PO 100 mg BEDTIME PRN Administration Insomnia Umeclidinium/Vilanterol 1 inh 02/15/25 09:00 02/20/25 08:53 Umeclidinium Brm/Vilanterol 1 Each Blst.W.Dev IH 1 inh DAILY RACHAEL Administration Vitamin B Complex 1 tab 02/15/25 11:00 02/20/25 08:54 Vitamin B-100 Complex 1 Tablet PO 1 tab DAILY RACHAEL Administration Plan Plan: 1. 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 Thompson ID with [facility] recommendations - follow up apt on 02/27, decrease nebs Q6H, sputum culture showing mixed maricarmen. 2. Hx of DVT/PE - continue xarelto 3. Epilepsy - continue home medications 4. Hyponatremia - chronic, continue salt tabs 5. Hx of opiate abuse - continue suboxone 6. Anxiety - continue home medications DVT Prophylaxis: Xarelto Dispo: Unable to receive IV meds outpatient due to poor IV access and hx of drug use. Continue inpatient, last dose of IV abx on 02/22. High risk of readmission otherwise as her bronch cultures show MDR pseudomonas. Review Statement Review Statement: I have personally discussed and reviewed the patient's visit/currently labs/imaging/decision making with Dr. Stone, my supervising attending. Greater that 50 minutes spent with patient, 50% of the time spent with this patient was devoted to counseling and coordination of care.
[2025-02-20] MEDS: ELAVIL PO SCH (21:53)
--- NOTE | 2025-02-21 12:06 | PCM.PROG ---
Date/Time Seen Date Seen by Provider: 02/21/25 Time Seen by Provider: 08:30 Provider Provider: [facility] Chief Complaint Chief Complaint: PNEUMONIA Subjective Subjective: Patient continues to feel better. States cough has improved. Facetimed with her sister to answer any questions. Expect dc tomorrow after abx. Objective Appearance: Positive No Apparent Distress and Alert and Oriented x3 Chest/Lungs: Positive Symmetrical With Equal Breath Sounds and Good Air Movement all 4 Lung Meza; Negative Rales, Rhonci or Wheezes Heart: Positive RRR and Pulses Normal GI/: Positive Soft, Nontender, Bowel Sounds Normal and No Distention Musculoskeletal: Positive Not Examined Neurological: Positive Sensation Intact, Motor intact, Alert, Oriented and Muscle Strength 5/5 in Upper and Lower Extremities Bilaterally Vital Signs Vital Signs: Vital Signs: Last 24 Hours 02/20/25 13:00 02/20/25 14:00 02/20/25 14:00 Temperature 97.8 F Temperature Source Temporal Artery Scan Pulse Rate 98 Respiratory Rate 14 Blood Pressure 115/65 Blood Pressure Mean 81 Blood Pressure Location Right Arm Blood Pressure Position O2 Sat by Pulse Oximetry 95 96 Oxygen Delivery Method Room Air Nasal Cannula Oxygen Flow Rate 2 Telemetry Type Remote Telemetry Telemetry Monitoring Continues Telemetry Heart Rate 101 H EKG MT Interval 0.12 EKG QRS Interval 0.[address] 02/20/25 18:00 02/20/25 19:00 02/20/25 20:00 Temperature 97.4 F L Temperature Source Temporal Artery Scan Pulse Rate 114 H Respiratory Rate 16 Blood Pressure 96/53 L Blood Pressure Mean 67 Blood Pressure Location Left Arm Blood Pressure Position O2 Sat by Pulse Oximetry 94 L 97 Oxygen Delivery Method Room Air Room Air Oxygen Flow Rate Telemetry Type Remote Telemetry Telemetry Monitoring Continues Telemetry Heart Rate 112 H EKG MT Interval 0.18 EKG QRS Interval 0.07 Telemetry Strip Reading Sinus tach 02/20/25 20:00 02/20/25 21:54 02/21/25 01:00 Temperature 97.4 F L Temperature Source Temporal Artery Scan Pulse Rate 101 H Respiratory Rate 18 16 Blood Pressure 101/61 Blood Pressure Mean 74 Blood Pressure Location Left Arm Blood Pressure Position O2 Sat by Pulse Oximetry 95 Oxygen Delivery Method Room Air Room Air Oxygen Flow Rate Telemetry Type Remote Telemetry Telemetry Monitoring Continues Telemetry Heart Rate 103 H EKG MT Interval 0.17 EKG QRS Interval 0.[address] 02/21/25 02:00 02/21/25 05:16 02/21/25 06:00 Temperature 98.4 F 97.2 F L Temperature Source Tympanic Tympanic Pulse Rate 84 75 Respiratory Rate 14 14 Blood Pressure 92/57 L 106/68 Blood Pressure Mean 68 80 Blood Pressure Location Left Arm Left Arm Blood Pressure Position Supine Supine O2 Sat by Pulse Oximetry 96 97 97 Oxygen Delivery Method Room Air Room Air Room Air Oxygen Flow Rate Telemetry Type Telemetry Monitoring Telemetry Heart Rate EKG MT Interval EKG QRS Interval Telemetry Strip Reading 02/21/25 09:34 02/21/25 10:21 Temperature 97.5 F L Temperature Source Temporal Artery Scan Pulse Rate 89 Respiratory Rate 18 Blood Pressure 104/57 L Blood Pressure Mean 72 Blood Pressure Location Left Arm Blood Pressure Position Sitting O2 Sat by Pulse Oximetry 99 96 Oxygen Delivery Method Nasal Cannula Room Air Oxygen Flow Rate 2 Telemetry Type Telemetry Monitoring Telemetry Heart Rate EKG MT Interval EKG QRS Interval Telemetry Strip Reading Lab Results Lab Results: Lab Results: Last 24 Hours 02/20/25 02/19/25 07:20 08:53 WBC 6.11 RBC 3.90 L Hgb 11.1 L Hct 36.5 L MCV 93.6 MCH 28.5 MCHC 30.4 L RDW Coeff of Tomas 15.1 H Plt Count 216 Immature Gran % (Auto) 0.5 Neut % (Auto) 53.4 Lymph % (Auto) 35.7 [place] % (Auto) 5.7 Eos % (Auto) 4.4 Baso % (Auto) 0.3 Neut # (Auto) 3.3 Lymph # (Auto) 2.2 [place] # (Auto) 0.4 Eos # (Auto) 0.3 Baso # (Auto) 0.0 Immature Gran # (Auto) 0.0 Sodium 135.2 Potassium 3.91 Chloride 100.5 Carbon Dioxide 29.4 Anion Gap 9.21 BUN 30.6 H Creatinine 0.76 Estimated GFR (MDRD) 82.00 BUN/Creatinine Ratio 40.26 Glucose 88.5 Calcium 8.76 Total Bilirubin 0.38 AST 55.8 H D ALT 42.4 H Alkaline Phosphatase 107.3 Total Protein 6.26 L Albumin 3.40 L Globulin 2.86 Albumin/Globulin Ratio 1.18 Miscellaneous Test 3.40 Additional Comments Additional Comments: I have independently reviewed and interpreted the labs/EKGs/imaging ordered during this hospital stay. I have reviewed outside records that are available in our EMR that pertain to medical stay including imaging/notes/labs from previous visits. Active Medications Active Medications: Medications Generic Name Dose Route Start Last Admin Trade Name Freq PRN Reason Stop Dose Admin Acetaminophen 650 mg 02/15/25 13:03 02/21/25 10:50 Acetaminophen 325 Mg Tablet PO 650 mg Q4H PRN Administration Pain Albuterol/Ipratropium 3 ml 02/18/25 12:52 Ipratropium/Albuterol Vial.Neb NEB RTQ6H PRN sob Amitriptyline HCl 25 mg 02/20/25 21:30 02/20/25 21:53 Amitriptyline Hcl 25 Mg Tablet PO 25 mg BEDTIME RACHAEL Administration Azelastine HCl 1 spray 02/15/25 09:00 02/21/25 08:48 Azelastine Hcl 30 Ml Nasal [place] SHAHID 1 spray BID RACHAEL Administration Celecoxib 200 mg 02/16/25 07:30 02/21/25 08:50 Celecoxib 100 Mg Capsule PO 200 mg DAILYWM2 RACHAEL Administration Cholecalciferol 5,000 unit 02/15/25 09:00 02/21/25 08:49 Cholecalciferol (Vitamin D3) 1,000 Unit (25 Mcg) Tablet PO 5,000 unit DAILY RACHAEL Administration Diphenhydramine HCl 50 mg 02/15/25 02:46 Diphenhydramine Hcl 25 Mg Capsule PO DAILY PRN Allergy Symptoms Guaifenesin 1,200 mg 02/15/25 09:00 02/21/25 08:48 Guaifenesin 600 Mg Tablet.Er PO 1,200 mg BID RACHAEL Administration Hydroxyzine HCl 25 mg 02/15/25 01:20 02/19/25 20:27 Hydroxyzine Hcl 25 Mg Tablet PO 25 mg BID PRN Administration Anxiety Tobramycin Sulfate 400 mg/ 110 mls @ 100 mls/hr 02/20/25 13:00 02/20/25 13:45 Sodium Chloride IV 02/22/25 22:00 100 mls/hr DAILY@1300 RACHAEL Administration Levetiracetam 1,000 mg 02/15/25 09:00 02/21/25 08:49 Levetiracetam 500 Mg Tablet PO 1,000 mg BID RACHAEL Administration Levothyroxine Sodium 100 mcg 02/16/25 06:00 02/21/25 05:08 Levothyroxine Sodium 100 Mcg Tablet PO 100 mcg QDAC2 RACHAEL Administration Montelukast Sodium 10 mg 02/15/25 09:00 02/21/25 08:50 Montelukast Sodium 10 Mg Tablet PO 10 mg DAILY RACHAEL Administration Non-Formulary Medication 1 film 02/15/25 21:00 02/21/25 08:55 Buprenorphine-Naloxone [Suboxone] BUCCAL 1 film BID RACHAEL Administration Ondansetron HCl 4 mg 02/15/25 01:20 Ondansetron Hcl 4 Mg Tablet PO Q8H PRN Nausea / Vomiting Pantoprazole Sodium 40 mg 02/15/25 09:00 02/21/25 05:08 Pantoprazole Sodium 40 Mg Tablet.Dr PO 40 mg QDAC2 RACHAEL Administration Potassium Chloride 20 meq 02/15/25 07:30 02/21/25 08:49 Potassium Chloride 20 Meq Tab PO 20 meq DAILYWM2 RACHAEL Administration Pregabalin 100 mg 02/15/25 09:00 02/21/25 08:49 Pregabalin 50 Mg Capsule PO 100 mg BID RACHAEL Administration Rivaroxaban 20 mg 02/15/25 17:00 02/20/25 16:58 Rivaroxaban 10 Mg Tablet PO 20 mg QPM RACHAEL Administration Saccharomyces Boulardii 250 mg 02/18/25 09:00 02/21/25 08:50 Saccharomyces Boulardii 250 Mg Capsule PO 250 mg BID RACHAEL Administration Sertraline HCl 100 mg 02/15/25 09:00 02/21/25 08:50 Sertraline Hcl 50 Mg Tablet PO 100 mg DAILY RACHAEL Administration Sodium Chloride 1 syr 02/20/25 05:30 02/21/25 05:08 0.9% Sodium Chloride 10 Ml Disp.Syrin IVF 1 syr Q8HR RACHAEL Administration Sumatriptan Succinate 25 mg 02/15/25 01:20 02/18/25 22:29 Sumatriptan Succinate 25 Mg Tablet PO 25 mg DAILY PRN Administration MIGRAINE HEADACHE Topiramate 25 mg 02/15/25 09:00 02/21/25 08:49 Topiramate 50 Mg Tablet PO 25 mg BID RACHAEL Administration Trazodone HCl 100 mg 02/15/25 01:02/21/25 01:05 Trazodone Hcl 50 Mg Tablet PO 100 mg BEDTIME PRN Administration Insomnia Umeclidinium/Vilanterol 1 inh 02/15/25 09:00 02/21/25 08:48 Umeclidinium Brm/Vilanterol 1 Each Blst.W.Dev IH 1 inh DAILY RACHAEL Administration Vitamin B Complex 1 tab 02/15/25 11:00 02/21/25 10:36 Vitamin B-100 Complex 1 Tablet PO 1 tab DAILY RACHAEL Administration Plan Plan: 1. 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 Thompson ID with [facility] recommendations - follow up apt on 02/27, decrease nebs Q6H, sputum culture showing mixed maricarmen. 2. Hx of DVT/PE - continue xarelto 3. Epilepsy - continue home medications 4. Hyponatremia - chronic, continue salt tabs 5. Hx of opiate abuse - continue suboxone 6. Anxiety - continue home medications DVT Prophylaxis: Xarelto Dispo: Unable to receive IV meds outpatient due to poor IV access and hx of drug use. Continue inpatient, last dose of IV abx on 02/22. High risk of readmission otherwise as her bronch cultures show MDR pseudomonas. Review Statement Review Statement: I have personally discussed and reviewed the patient's visit/currently labs/imaging/decision making with Dr. Stone, my supervising attending. Greater that 50 minutes spent with patient, 50% of the time spent with this patient was devoted to counseling and coordination of care.
[2025-02-22 05:51] LABS: CREATININE 0.71 mg/dL (0.60-1.30)
[2025-02-22 10:24] VITALS: RESP 14
--- NOTE | 2025-02-22 11:43 | DCSUM ---
Admission Date Admission Date: 02/14/25 Discharge Date Discharge Date: 02/22/25 Admission Diagnosis Admission Diagnosis: 1. Acute on Chronic Recurrent Pneumonia due to MDR Pseudomonas Discharge Diagnosis Discharge Diagnosis: 1. Acute on Chronic Recurrent Pneumonia due to MDR Pseudomonas 2. Hx of DVT/PE 3. Epilepsy 4. Hyponatremia 5. Hx of opiate abuse 6. Anxiety Hospital Provider Hospital Provider: LUCILLE ANDERS PA-C, [facility] Primary Care Physician Primary Care Physician: JONATAN LANIER MD Summary of History and Physical Summary of History and Physical: 44 yo female with extensive pmh that including ARDS with prolonged intubation, ECMO, and tracheostomy, PE, DVT, Sepsis, epilepsy, migraines, anxiety, and right hydropneumothorax presented to the ER with complaints of unresolved pneumonia. Patient has been in and out of multiple hospitals since 04/2024 and has been treated for chronic recurrent pneumonia. Most recent admission was at [facility] on 01/26-01/29 in which she was found to have multi-focal pneumonia d/t pseudomonas. She underwent a bronchoscopy during this stay and cultures were pending upon discharge. She was referred to infectious disease and has upcoming appointment on 02/[address] Thompson in [place]. Patient was prescribed a 7 day course of levaquin and steroids in which she completed but symptoms did not resolve. Continues to have productive cough with [id number] sputum, congestion, and shortness of air. Also reports her lower extremities have been swelling but are improved compared to the last couple days. After investigation of records from [facility], culture report revealed MDR pseudomonas with resistance to the levaquin course she recently completed. Spoke with Dr. Thompson to discuss his recommendations regarding this new patient of his and recommended a 7 day course of Avycaz - however our hospital is unable to provide this medication. He stated that if this is unavailable tobramycin would be recommended based on the culture. This is not his preference, but is appropriate course to treat this patient. Will follow with her in clinic on . Admitted to med/surg inpatient to acute on chronic recurrent pneumonia d/t pseudomonas. Hospital Course Subjective: Patient completed 7 days of IV tobramycin. She has tolerated well. She has remained on RA. She overall is feeling much better. Has had no complications during stay. She is hopeful this will get her in the right direction in regards to her recurrent pneumonia. She has f/u scheduled with pcp, ID, and pulmonology in near future. Of note, airset caster met with her. Patient was consuming large amounts of fluids, mostly milk. After discussed with her and her sister, she is afraid of gaining weight and instead of eating food, will rely on liquids. Discussed would benefit from outpatient airset caster, however she'd like to get through these specialist appointments first. Discussed ways of getting better protein intake, cutting down on mt dew intake, increasing protein shakes if she's going to rely on liq uids for calories/protein. Appearance: Pleasant, No Apparent Distress and Alert HEENT: MMM CVS: Other (RRR) Abdomen: Soft, Non-Tender and No Distention Respiratory: No Accessory Muscle Use Extremities: No Edema Vital Signs: Most Recent Vital Signs Temperature 96.8 F L 02/22/25 10:00 Temperature Source Temporal Artery Scan 02/22/25 10:00 Temperature Source Temporal Artery Scan 02/14/25 23:00 Pulse Rate 87 02/22/25 10:00 Respiratory Rate 14 02/22/25 10:00 Blood Pressure 99/60 02/22/25 10:00 Blood Pressure Mean 73 02/22/25 10:00 Blood Pressure Right Arm 110/76 02/15/25 00:03 Blood Pressure Location Left Arm 02/22/25 10:00 Blood Pressure Position Supine 02/22/25 05:52 O2 Sat by Pulse Oximetry 97 02/22/25 10:00 Oxygen Delivery Method Room Air 02/22/25 10:00 Oxygen Flow Rate 2 02/21/25 13:28 Height 5 ft 02/19/25 12:20 Weight 70.1 kg 02/19/25 12:20 Telemetry Type Bedside Monitor 02/22/25 07:00 Telemetry Monitoring Continues 02/22/25 01:00 Irregular Telemetry Rate (Approximate) 70-80 BPM 02/19/25 07:00 Telemetry Heart Rate 75 02/22/25 07:00 Telemetry SPO2 94 02/20/25 01:00 EKG MT Interval 0.17 02/22/25 07:00 EKG QRS Interval 0.06 02/22/25 07:00 Telemetry Strip Reading NSR 02/22/25 07:00 Imaging: EXAM: CTA CHEST PE PROTOCOL 02/15/2025. SAGITTAL, CORONAL, MIP AND THREE- DIMENSIONAL RECONSTRUCTED IMAGES PROVIDED HISTORY: sob COMPARISON: 01/26/2025 FINDINGS: Stable chronic right-sided loculated thick-walled hydropne umothorax.The heart size appears stable. There is no pericardial effusion.There are no pulmonary arterial filling defects to suggest pulmonary embolus. The previously described 1.2 cm short axis subcarinal lymph node is stable. This is likely physiologic and reactive. There are innumerable micronodules throughout both lungs. The previously described 9 mm right-sided nodule is stable on axial image 52 of series 9. Consolidation along the lateral and posterior right chest remains consistent with fibrosis, atelectasis and/or pneumonia. Stable bronchiectasis most severe within the lower lobes. Right middle lobe and right lower lobe peribronchial thickening is present. Limited views of the upper abdomen shows no acute abnormality.No acute osseous abnormality. IMPRESSION: 1. No pulmonary embolus. 2. Stable right-sided loculated thick walled hydropneumothorax. 3. Stable reactive appearing mediastinal lymph nodes. Reference measurements above. 4. Innumerable pulmonary micronodules throughout both lungs. These are likely infectious/inflammatory. The previously referenced 9 mm right-sided nodule is stable. 5. Stable bronchiectasis most prominent within the lower lobes. 6. Consolidation along the lateral and posterior right chest remains most compatible with fibrosis, atelectasis and/or pneumonia. This is grossly stable. 7. Right middle lobe and right lower lobe peribronchial thickening. EXAM: CHEST, ONE-VIEW HISTORY: Cough FINDINGS: Cardiac and mediastinal contours are normal. Pulmonary vasculature is normal. Crack right pleuroparenchymal scarring and pleural fluid stable from 01/23/2025. No developing opacities. Bony thorax is unremarkable. IMPRESSION: Right-sided pleural-parenchymal scarring and pleural fluid. No developing opacities. Lab Results Last 24 Hours: 02/22/25 05:23 Sodium 133.2 L Potassium 4.40 Chloride 100.6 Carbon Dioxide 29.3 Anion Gap 7.70 BUN 30.7 H Creatinine 0.71 Estimated GFR (MDRD) 89.00 BUN/Creatinine Ratio 43.23 Glucose 90.0 Calcium 8.65 Discharge Instructions Discharge Planning: Discharge Planning > [address] Coty Stone. Discharge Medications: Medications at Discharge (Home Meds & RX) vitamin B complex and vitamin C no.20-folic acid 1 mg capsule (Triphrocaps) 1 cap PO DAILY 09/20/24 nebulizer and compressor #1 ea 10/10/24 cholecalciferol (vitamin D3) 125 mcg (5,000 unit) capsule 125 mcg PO QDAY 10/23/24 diphenhydramine HCl 25 mg tablet 50 mg PO QDAY PRN allergy symptoms 10/23/24 naloxone 4 mg/actuation nasal spray (Narcan) 4 mg intranasal Q3M PRN opioid overdose 10/23/24 albuterol sulfate 2.5 mg/3 mL (0.083 %) solution for nebulization 2.5 mg (3 mL) inhalation Q4-6H PRN shortness of breath or wheezing #90 mL 12/24/24 amitriptyline 25 mg tablet 25 mg PO BEDTIME #90 tabs 12/24/24 celecoxib 200 mg capsule 200 mg PO Q24H #90 caps 12/24/24 guaifenesin 1,200 mg tablet, extended release 12 hr (Mucinex) 1,200 mg PO BID 12/24/24 hydroxyzine HCl 25 mg tablet 25 mg PO BID PRN anxiety #60 tabs 12/24/24 levetiracetam 1,000 mg tablet 1,000 mg PO 2XD #60 tabs 12/24/24 levothyroxine 100 mcg tablet 100 mcg PO DAILY #90 tabs 12/24/24 ondansetron HCl 4 mg tablet 4 mg PO 3XD PRN nausea and vomiting #90 tabs 12/24/24 pantoprazole 40 mg tablet,delayed release 40 mg PO DAILY #90 tabs 12/24/24 pregabalin 100 mg capsule 100 mg PO BID #60 caps 12/24/24 rivaroxaban 20 mg tablet (Xarelto) 20 mg PO QDAY #90 tabs 12/24/24 sertraline 100 mg tablet 100 mg PO DAILY #90 tabs 12/24/24 sumatriptan succinate 25 mg tablet 25 mg PO DAILY PRN migraine headache #20 tabs 12/24/24 topiramate 25 mg tablet 25 mg PO 2XD #180 tabs 12/24/24 trazodone 100 mg tablet 100 mg PO BEDTIME PRN sleep #90 tabs 12/24/24 potassium chloride 20 mEq tablet,extended release 20 meq PO DAILY #30 tabs 01/18/25 umeclidinium 62.5 mcg-vilanterol 25 mcg/actuation powdr for inhalation (Anoro Ellipta) 1 inh inhalation Q24H #60 ea 01/24/25 buprenorphine 8 mg-naloxone 2 mg sublingual film (Suboxone) 1 film buccal BID 02/14/25 azelastine 137 mcg (0.1 %) nasal spray 1 spray intranasal BID 02/15/25 montelukast 10 mg tablet 10 mg PO DAILY 02/15/25 sodium chloride 3 % for nebulization 4 ml inhalation BID 02/15/25 Discharge Plan Discharge Discharge Orders: Discharge Patient (ONCE); Ordered 02/22/25 Ordered By: LUCILLE ANDERS Activity Restrictions/Additional Instructions: DISCHARGE TO HOME DX: MDR PSEUDOMONAS PNEUMONIA REQUIRING IV TREATMENT F/U WITH PCP, ID, AND PULM SCHEDULED RETURN WITH WORSENING SYMPTOMS WOULD RECOMMEND DIETITIAN REFERRAL ONCE YOU'RE READY ACTIVITY: TOLERATED Instructions: Community Acquired Pneumonia (DC) Patient Disposition: HOME SELF-CARE Prescriptions: Continued potassium chloride 20 mEq tablet extended release 20 meq PO DAILY Qty: 30 2RF Triphrocaps 1 mg capsule 1 cap PO DAILY buprenorphine-naloxone [Suboxone] 8-2 mg film 1 film buccal BID Rx Instructions: substance abuse sodium chloride 3 % solution for nebulization 4 ml INHALATION BID Patient Comments: [NO ORIGINAL SIG] montelukast 10 mg tablet 10 mg PO DAILY azelastine 137 mcg (0.1 %) spray,non-aerosol 1 spray INTRANASAL BID Patient Comments: [NO ORIGINAL SIG] Rx Instructions: One spray each nostril 2x a day. cholecalciferol (vitamin D3) 125 mcg (5,000 unit) capsule 125 mcg PO QDAY diphenhydramine HCl 25 mg tablet 50 mg PO QDAY PRN (Reason: allergy symptoms) naloxone [Narcan] 4 mg/actuation spray,non-aerosol 4 mg intranasal Q3M PRN (Reason: opioid overdose) Rx Instructions: spray 1 dose into ONE nostril; alternate nostrils w each dose until help arrives guaifenesin [Mucinex] 1,200 mg tablet extended release 12hr 1,200 mg PO BID albuterol sulfate 2.5 mg /3 mL (0.083 %) solution for nebulization 2.5 mg inhalation Q4-6H PRN (Reason: shortness of breath or wheezing) Qty: 90 2RF amitriptyline 25 mg tablet 25 mg PO BEDTIME Qty: 90 2RF celecoxib 200 mg capsule 200 mg PO Q24H Qty: 90 5RF hydroxyzine HCl 25 mg tablet 25 mg PO BID PRN (Reason: anxiety) Qty: 60 1RF levetiracetam 1,000 mg tablet 1,000 mg PO 2XD Qty: 60 2RF levothyroxine 100 mcg tablet 100 mcg PO DAILY Qty: 90 2RF ondansetron HCl 4 mg tablet 4 mg PO 3XD PRN (Reason: nausea and vomiting) Qty: 90 2RF pantoprazole 40 mg tablet,delayed release (DR/EC) 40 mg PO DAILY Qty: 90 2RF pregabalin 100 mg capsule 100 mg PO BID Qty: 60 2RF Rx Instructions: moved locally. Records requested. Establishing care. Xarelto 20 mg tablet 20 mg PO QDAY Qty: 90 12RF Rx Instructions: must administer with evening meal. 340B. sertraline 100 mg tablet 100 mg PO DAILY Qty: 90 2RF sumatriptan succinate 25 mg tablet 25 mg PO DAILY PRN (Reason: migraine headache) Qty: 20 5RF Rx Instructions: No more than 3 tablets in a week topiramate 25 mg tablet 25 mg PO 2XD Qty: 180 2RF trazodone 100 mg tablet 100 mg PO BEDTIME PRN (Reason: sleep) Qty: 90 1RF umeclidinium-vilanterol [Anoro Ellipta] 62.5-25 mcg/actuation blister with device 1 inh inhalation Q24H Qty: 60 0RF Discontinued ibuprofen [Advil] 200 mg tablet 200 mg PO Q6-8H PRN (Reason: pain) No Action (DME) nebulizer and compressor Device See Rx Instructions .ROUTE Qty: 1 0RF Rx Instructions: As directed Did you review [place] [employer] for ALL controlled substances?: Not Applicable Discussed opioids are addictive and Narcan is available by prescription or from pharmacy.: No Condition: Stable Referrals: Jefferson Thompson [Other] - 02/27/25 9:45 am JONATAN LANIER MD [Primary Care Provider, Family Practice] - 02/26/25 10:00 am
[2025-02-22 15:17] VITALS: BP 101/55; PULSE 90; TEMP 96.9
== END 2025-02-22 16:15 | disposition home or self-care (01) | DRG 178 ==
LOC: MEDSURG B 21:37 → ED 21:37 → OBSVTOIN 23:14 → MEDSURG B 02-15 00:19
PROVIDERS: ADMIT Hospitalist; ATTEND Physician Assistant